=== PATIENT | female | born 1970 | race Caucasian/White ===

== ENCOUNTER 2016-07-01 17:32 | Emergency (ER) | payer OTHER, MEDICARE ==
[~2016-07-01] VITALS: Ht 172.7 cm; Wt 72.0 kg
[~2016-07-01 17:32] MED LIST: CHOL20003 PO; CYAN2500 PO; HYDR-3240 PO; LACT1CAP37 PO; LIDO700A5 TD; MAGN400T7 PO; MECL25TA4 PO; MELA5TAB PO; METH750T87 PO; MULT-516 PO; Magnesium PO; ONDA4TAB13 SL; OXYC10TA6 PO; OXYC5TAB3 PO; POLY17PO5 PO; QUET100T PO; SENN8.6T98 PO; WHEAT GRASS; [UNRECOGNIZED DRUG - OTHER] PO; biocleanse PO
[2016-07-01] MEDS ORDERED: ASPIRIN 81 MG TABLET CHEW PO ONE (18:00)
[2016-07-01] MEDS ORDERED: ASPIRIN 81 MG TABLET CHEW ONE (18:25)
[2016-07-01 18:41] LABS: HEMOGLOBIN 11.5 g/dL (11.7-16.4)
[2016-07-01 18:52] LABS: ASPARTATE AMINO TRANSFERASE 35 U/L (15-37); BLOOD UREA NITROGEN 7 mg/dL (7-18)
[2016-07-01 18:58] LABS: IS PT STATUS REG ER OR PRE ER? YES
[2016-07-01] MEDS ORDERED: ONDANSETRON 2MG/ML, 2ML IVPush ONE ×2 (19:00→19:30)
[2016-07-01] MEDS ORDERED: SODIUM CHLORIDE FLUSH 10ML SYR IVF ONE (19:00)
[2016-07-01 19:30] VITALS: BP 125/81
[2016-07-01] MEDS ORDERED: MORPHINE SULFATE 4 MG/ML, 1ML IVPush PRN (19:30)
[2016-07-01] MEDS ORDERED: ONDANSETRON 2MG/ML, 2ML ONE (19:35)
[2016-07-01] MEDS ORDERED: MORPHINE SULFATE 4 MG/ML, 1ML ONE (19:35)
[2016-07-01 20:54] LABS: PATH.CAST-FLAG NOT PRESENT; SPERM-FLAG NOT PRESENT; SRC-FLAG NOT PRESENT; XTAL-FLAG NOT PRESENT; YLC-FLAG NOT PRESENT
== END 2016-07-01 21:14 | disposition home or self-care (01) ==
LOC: ED 21:08
DX: N30.00 Acute cystitis without hematuria (principal); R07.89 Other chest pain; Z90.49 Acquired absence of other specified parts of digestive tract; Z88.8 Allergy status to other drugs, medicaments and biological substances
CPT/HCPCS: 36415; 71010; 80053; 81001; 83690; 84484; 85025; 85379; 87077; 87086; 87186; 93005; 96374; 96375; 99285; J2405

== ENCOUNTER 2017-01-05 09:07 | Emergency (ER) | payer OTHER, MEDICARE ==
[~2017-01-05] VITALS: Ht 175.3 cm; Wt 68.0 kg
[~2017-01-05 09:07] MED LIST changes: +CHOL2000 PO; -CHOL20003 PO; -MELA5TAB PO; +MELA5TAB19 PO
[2017-01-05] MEDS ORDERED: SODIUM CHLORIDE 0.9% 1,000 ML IV ONE (09:33)
[2017-01-05 09:56] LABS: HEMATOCRIT 35.5 % (34.6-47.8); HEMOGLOBIN 12.1 g/dL (11.7-16.4); WHITE BLOOD COUNT 2.6 x10^3/uL (3.4-10)
[2017-01-05] MEDS ORDERED: SODIUM CHLORIDE FLUSH 10ML SYR IVF ONE (10:00)
[2017-01-05] MEDS ORDERED: FENTANYL PF 100 MCG/2ML IVPush PRN (10:00)
[2017-01-05] MEDS ORDERED: ONDANSETRON 2MG/ML, 2ML IVPush ONE (10:00)
[2017-01-05 10:02] LABS: ASPARTATE AMINO TRANSFERASE 33 U/L (15-37); BLOOD UREA NITROGEN 9 mg/dL (7-18)
[2017-01-05 10:08] LABS: IS PT STATUS REG ER OR PRE ER? YES
[2017-01-05] MEDS ORDERED: ONDANSETRON 2MG/ML, 2ML ONE (10:11)
[2017-01-05] MEDS ORDERED: FENTANYL PF 100 MCG/2ML ONE (10:12)
[2017-01-05 11:19] VITALS: BP 109/69
== END 2017-01-05 11:59 | disposition home or self-care (01) ==
LOC: ED 09:32
DX: R07.89 Other chest pain (principal); R10.84 Generalized abdominal pain; D72.819 Decreased white blood cell count, unspecified; Z87.891 Personal history of nicotine dependence; Z90.49 Acquired absence of other specified parts of digestive tract
CPT/HCPCS: 36415; 74022; 80053; 83690; 83880; 84484; 85025; 93005; 96361; 96374; 96375; 99285; J2405; J3010; J7030

== ENCOUNTER 2017-01-10 22:21 | Emergency (ER) | payer OTHER, MEDICARE ==
[~2017-01-10] VITALS: Ht 175.3 cm; Wt 54.5 kg
[2017-01-10] MEDS ORDERED: LORazepam 2 MG/ML, 1ML ONE (22:52)
[2017-01-10] MEDS ORDERED: ONDANSETRON 2MG/ML, 2ML ONE (22:52)
[2017-01-10] MEDS ORDERED: SODIUM CHLORIDE 0.9% 1,000ML IVBOLUS ONE (23:00)
[2017-01-10] MEDS ORDERED: LORazepam 2 MG/ML, 1ML IVPush ONE (23:00)
[2017-01-10] MEDS ORDERED: ONDANSETRON 2MG/ML, 2ML IVPush ONE (23:00)
[2017-01-10] MEDS ORDERED: QUET50TA PO (23:04)
[2017-01-10] MEDS ORDERED: KETOROLAC 30 MG/1 ML ONE (23:21)
[2017-01-10] MEDS ORDERED: KETOROLAC 30 MG/1 ML IVPush ONE (23:30)
[2017-01-11 00:09] VITALS: BP 106/69
== END 2017-01-11 00:33 | disposition home or self-care (01) ==
LOC: ED 23:59
DX: F12.129 Cannabis abuse with intoxication, unspecified (principal); G89.29 Other chronic pain; R10.9 Unspecified abdominal pain
CPT/HCPCS: 96361; 96374; 96375; 99285; J1885; J2060; J2405; J7030

== ENCOUNTER 2017-02-06 11:26 | Emergency (ER) | payer OTHER, MEDICARE ==
[~2017-02-06] VITALS: Ht 172.7 cm; Wt 57.0 kg
[~2017-02-06 11:26] MED LIST changes: +QUET50TA PO
[2017-02-06] MEDS ORDERED: SODIUM CHLORIDE 0.9% 1,000ML IVBOLUS ONE (12:00)
[2017-02-06 12:13] LABS: HEMATOCRIT 38.1 % (34.6-47.8); HEMOGLOBIN 12.5 g/dL (11.7-16.4); WHITE BLOOD COUNT 2.4 x10^3/uL (3.4-10)
[2017-02-06 12:25] LABS: ASPARTATE AMINO TRANSFERASE 40 U/L (15-37); BLOOD UREA NITROGEN 8 mg/dL (7-18)
[2017-02-06 12:28] LABS: IS PT STATUS REG ER OR PRE ER? YES
[2017-02-06] MEDS ORDERED: MECLIZINE CHEWABLE 25 MG TAB PO ONE (12:30)
[2017-02-06] MEDS ORDERED: morphine SULFATE 10 MG/ML, 1ML ONE (12:41)
[2017-02-06] MEDS ORDERED: ONDANSETRON 2MG/ML, 2ML ONE (12:41)
[2017-02-06] MEDS ORDERED: MECLIZINE CHEWABLE 25 MG TAB ONE (12:41)
[2017-02-06 13:05] LABS: PATH.CAST-FLAG NOT PRESENT; SPERM-FLAG NOT PRESENT; SRC-FLAG NOT PRESENT; XTAL-FLAG NOT PRESENT; YLC-FLAG NOT PRESENT
[2017-02-06] MEDS ORDERED: ONDANSETRON 2MG/ML, 2ML IVPush ONE (13:30)
[2017-02-06] MEDS ORDERED: MORPHINE SULFATE 4 MG/ML, 1ML IVPush ONE (13:30)
[2017-02-06 15:02] VITALS: BP 115/57
== END 2017-02-06 15:04 | disposition home or self-care (01) ==
LOC: ED 13:39
DX: R42 Dizziness and giddiness (principal); Z90.49 Acquired absence of other specified parts of digestive tract
CPT/HCPCS: 36415; 70450; 71010; 80053; 81001; 82010; 83690; 84484; 85025; 87086; 93005; 96361; 96374; 96375; 99285; J2405; J7030

== ENCOUNTER 2017-05-12 13:13 | Emergency (ER) | payer OTHER, MEDICARE ==
[~2017-05-12] VITALS: Ht 172.7 cm; Wt 53.0 kg
[2017-05-12] MEDS ORDERED: DIPHENHYDRAMINE 50 MG/ML, 1ML IVPush ONE (14:00)
[2017-05-12] MEDS ORDERED: SODIUM CHLORIDE 0.9% 1,000ML IVBOLUS ONE (14:00)
[2017-05-12] MEDS ORDERED: MORPHINE SULFATE 4 MG/ML, 1ML IVPush PRN (14:00)
[2017-05-12] MEDS ORDERED: SODIUM CHLORIDE FLUSH 10ML SYR IVF ONE (14:00)
[2017-05-12] MEDS ORDERED: METOCLOPRAMIDE 5 MG/ML, 2ML IVPush ONE (14:00)
[2017-05-12] MEDS ORDERED: METOCLOPRAMIDE 5 MG/ML, 2ML ONE (14:07)
[2017-05-12] MEDS ORDERED: MORPHINE SULFATE 4 MG/ML, 1ML ONE (14:07)
[2017-05-12] MEDS ORDERED: DIPHENHYDRAMINE 50 MG/ML, 1ML ONE (14:07)
[2017-05-12 14:11] LABS: MICROSCOPIC NOT IND
[2017-05-12 14:26] LABS: BASOPHILS # (AUTO) 0.02 x10^3/uL (0-0.1); BASOPHILS % (AUTO) 1 % (0-1); EOSINOPHILS # (AUTO) 0.01 x10^3/uL (0-0.4); EOSINOPHILS % (AUTO) 0 % (1-7); LYMPHOCYTES # (AUTO) 0.89 x10^3/uL (1-3.4); LYMPHOCYTES % (AUTO) 21 % (22-44); MD NO; MEAN CORPUSCULAR HEMOGLOBIN 30.9 pg (27.0-34.8); MEAN CORPUSCULAR HGB CONC 33.8 g/dL (32.4-35.8); MEAN CORPUSCULAR VOLUME 91.4 fL (80-100); MEAN PLATELET VOLUME 9.4 fL (7.4-10.4); MONOCYTES # (AUTO) 0.34 x10^3/uL (0.2-0.8); MONOCYTES % (AUTO) 8 % (2-9); NEUTROPHILS # (AUTO) 3.01 x10^3/uL (1.8-6.8); NEUTROPHILS % (AUTO) 70 % (42-75); PLATELET COUNT 217 x10^3/uL (130-400); RED BLOOD COUNT 4.55 x10^6/uL (3.82-5.3); RED CELL DISTRIBUTION WIDTH 15.1 % (9.6-15.2)
[2017-05-12 14:27] LABS: CULTURE INDICATED? NO
[2017-05-12 14:35] LABS: ALBUMIN 3.5 g/dL (3.4-5.0); ANION GAP 8 mmol/L (5-15); CALCIUM 8.1 mg/dL (8.5-10.1); CHLORIDE 106 mmol/L (98-107)
[2017-05-12 14:41] LABS: ALANINE AMINOTRANSFERASE 44 U/L (12-78); ALKALINE PHOSPHATASE 143 U/L (45-117); BILIRUBIN,TOTAL 0.8 mg/dL (0.2-1.0); CREATININE 0.79 mg/dL (0.55-1.02); TOTAL PROTEIN 6.6 g/dL (6.4-8.2)
[2017-05-12 15:49] VITALS: BP 91/57
== END 2017-05-12 15:52 | disposition home or self-care (01) ==
LOC: ED 15:46
DX: R10.84 Generalized abdominal pain (principal); F11.23 Opioid dependence with withdrawal; Z90.49 Acquired absence of other specified parts of digestive tract; Z88.5 Allergy status to narcotic agent
CPT/HCPCS: 36415; 80053; 81003; 83690; 84703; 85025; 96361; 96374; 96375; 99284; J1200; J2765; J7030

== ENCOUNTER → 2018-08-29 | Outpatient (CLI) | payer OTHER, MEDICARE ==
[~2018-08-29] MED LIST changes: +ALPR1TAB2 PO; +CITA10TA4 PO; +FLUO10CA13 PO; +GABA300C10 PO
[2018-08-29 09:25] LABS: BASOPHILS # (AUTO) 0.02 x10^3/uL (0-0.1); BASOPHILS % (AUTO) 1 % (0-1); EOSINOPHILS # (AUTO) 0.04 x10^3/uL (0-0.4); EOSINOPHILS % (AUTO) 1 % (1-7); LYMPHOCYTES # (AUTO) 0.87 x10^3/uL (1-3.4); LYMPHOCYTES % (AUTO) 26 % (22-44); MD NO; MEAN CORPUSCULAR HEMOGLOBIN 30.6 pg (27.0-34.8); MEAN CORPUSCULAR HGB CONC 32.7 g/dL (32.4-35.8); MEAN CORPUSCULAR VOLUME 93.5 fL (80-100); MEAN PLATELET VOLUME 8.6 fL (7.4-10.4); MONOCYTES # (AUTO) 0.33 x10^3/uL (0.2-0.8); MONOCYTES % (AUTO) 10 % (2-9); NEUTROPHILS # (AUTO) 2.11 x10^3/uL (1.8-6.8); NEUTROPHILS % (AUTO) 63 % (42-75); PLATELET COUNT 225 x10^3/uL (130-400); RED BLOOD COUNT 4.31 x10^6/uL (3.82-5.3)
[2018-08-29 09:29] LABS: ALANINE AMINOTRANSFERASE 50 U/L (12-78); ANION GAP 5 mmol/L (5-15); CALCIUM 8.5 mg/dL (8.5-10.1); CHLORIDE 108 mmol/L (98-107); CREATININE 0.81 mg/dL (0.55-1.02)
[2018-08-29 09:56] LABS: ALKALINE PHOSPHATASE 75 U/L (45-117); BILIRUBIN,TOTAL 0.4 mg/dL (0.2-1.0); TOTAL PROTEIN 7.3 g/dL (6.4-8.2)
== END | disposition home or self-care (01) ==
LOC: LAB 08:53
PROVIDERS: ATTEND Internal Medicine
DX: D51.9 Vitamin B12 deficiency anemia, unspecified (principal); E31.20 Multiple endocrine neoplasia [MEN] syndrome, unspecified; E34.0 Carcinoid syndrome; G89.4 Chronic pain syndrome; K59.03 Drug induced constipation; R10.9 Unspecified abdominal pain; Z88.5 Allergy status to narcotic agent
CPT/HCPCS: 36415; 80053; 82607; 84586; 85025

== ENCOUNTER 2018-09-13 11:29 | Emergency (ER) | payer OTHER, MEDICARE ==
[~2018-09-13] VITALS: Ht 177.8 cm; Wt 77.7 kg
--- NOTE | 2018-09-13 12:25 | NUR ---
PT TO ROOM FROM LOBBY, PT STATES SHE "NEEDS TO GO NOW", PT GIVEN SUPPLIES FOR URINE AND STOOL SAMPLES
[2018-09-13 12:36] LABS: BASOPHILS # (AUTO) 0.02 x10^3/uL (0-0.1); BASOPHILS % (AUTO) 0 % (0-1); EOSINOPHILS # (AUTO) 0.06 x10^3/uL (0-0.4); EOSINOPHILS % (AUTO) 1 % (1-7); LYMPHOCYTES # (AUTO) 1.04 x10^3/uL (1-3.4); LYMPHOCYTES % (AUTO) 21 % (22-44); MD NO; MEAN CORPUSCULAR HEMOGLOBIN 31.3 pg (27.0-34.8); MEAN CORPUSCULAR HGB CONC 33.4 g/dL (32.4-35.8); MEAN CORPUSCULAR VOLUME 93.8 fL (80-100); MEAN PLATELET VOLUME 8.3 fL (7.4-10.4); MONOCYTES # (AUTO) 0.64 x10^3/uL (0.2-0.8); MONOCYTES % (AUTO) 13 % (2-9); NEUTROPHILS # (AUTO) 3.29 x10^3/uL (1.8-6.8); NEUTROPHILS % (AUTO) 65 % (42-75); PLATELET COUNT 299 x10^3/uL (130-400); RED BLOOD COUNT 4.51 x10^6/uL (3.82-5.3); RED CELL DISTRIBUTION WIDTH 13.4 % (9.6-15.2)
[2018-09-13 12:45] LABS: ALBUMIN 4.1 g/dL (3.4-5.0); ANION GAP 5 mmol/L (5-15); CALCIUM 8.4 mg/dL (8.5-10.1); CHLORIDE 105 mmol/L (98-107); CREATININE 0.83 mg/dL (0.55-1.02)
--- NOTE | 2018-09-13 12:53 | NUR ---
pt unable to stool at this time, urine sent to lab
[2018-09-13 13:11] LABS: MICROSCOPIC NOT IND
[2018-09-13 13:15] LABS: CULTURE INDICATED? NO
--- NOTE | 2018-09-13 13:18 | NUR ---
PT STILL UNABLE TO PROVIDE STOOL SAMPLE AT THIS TIME. PT RESTING IN [facility], CALL LIGHT WITHIN REACH
[2018-09-13 13:51] VITALS: BP 114/69
[2018-09-13] MEDS ORDERED: FENTANYL PF 100 MCG/2ML IV ONE (14:00)
--- NOTE | 2018-09-13 14:11 | NUR ---
PT REFUSING PAIN MEDICATION. MD AT BEDSIDE TO GO OVER RESULTS, PT STATES "IF YOU CAN'T TEST FOR CDIFF WHY AM I HERE, I SHOULDNT HAVE COME HERE", PT PRODUCES PAPERWORK FOR LAB TESTS FOR STOOL SAMPLE, PT EDUCATED WE CANNOT TEST FOR CDIFF IF WE DO NOT HAVE STOOL SAMPLE AND SHE CAN USE THE LAB REQS TO DO THIS OUTPATIENT. PT STATES "FINE I WANT TO LEAVE THEN"
== END 2018-09-13 14:27 | disposition home or self-care (01) ==
LOC: ED 14:21
DX: R19.7 Diarrhea, unspecified (principal); R10.30 Lower abdominal pain, unspecified; Z90.49 Acquired absence of other specified parts of digestive tract
CPT/HCPCS: 36415; 80048; 81003; 82040; 85025; 93005; 99284

== ENCOUNTER → 2018-09-14 | Outpatient (CLI) | payer OTHER, MEDICARE | END | disposition home or self-care (01) | LOC: CFH 11:49 | PROVIDERS: ATTEND Specialist | DX: Z12.31 Encounter for screening mammogram for malignant neoplasm of breast (principal) | CPT/HCPCS: 76641; 77063; 77067 ==

== ENCOUNTER 2018-10-03 10:17 | Outpatient (CLI) | payer OTHER, MEDICARE ==
[~2018-10-03] VITALS: Ht 177.8 cm; Wt 77.4 kg
[2018-10-03 10:01] VITALS: BP 132/84
[~2018-10-03 10:17] MED LIST changes: +DULO20CA45 PO
[2018-10-03] MEDS ORDERED: OCTREOTIDE LAR 20 MG IM ONE (10:30)
[2018-10-04] MEDS ORDERED: CIPR500S2 PO (19:17)
[2018-10-04] MEDS ORDERED: DOXE10OR2 PEG (19:17)
[2018-10-04] MEDS ORDERED: DULO30CA43 PO (19:17)
[2018-10-04] MEDS ORDERED: DICL100G25 PO (19:17)
[2018-10-04] MEDS ORDERED: BENZ150C3 PO (19:17)
[2018-10-04] MEDS ORDERED: DULO40CA2 PEG (20:01)
== END 2018-10-03 23:59 | disposition home or self-care (01) ==
LOC: INFUSION 10:17
PROVIDERS: ATTEND Internal Medicine Gastroenterology
DX: D3A.098 Benign carcinoid tumors of other sites (principal); G89.4 Chronic pain syndrome; Z90.49 Acquired absence of other specified parts of digestive tract; Z79.899 Other long term (current) drug therapy
CPT/HCPCS: 96372; J2353

== ENCOUNTER 2018-10-03 10:33 | Emergency (ER) | payer OTHER, MEDICARE ==
[~2018-10-03] VITALS: Ht 177.8 cm; Wt 76.7 kg
[2018-10-03 11:13] LABS: MICROSCOPIC NOT IND
[2018-10-03 11:18] LABS: CULTURE INDICATED? NO
[2018-10-03] MEDS ORDERED: morphine SULFATE 10 MG/ML, 1ML IVPush ONE (11:30)
[2018-10-03] MEDS ORDERED: SODIUM CHLORIDE FLUSH 10ML SYR IVF ONE (11:30)
[2018-10-03] MEDS ORDERED: morphine SULFATE 10 MG/ML, 1ML ONE (11:37)
--- NOTE | 2018-10-03 11:39 | NUR ---
PIV STARTED. PATIENT MEDICATED WITH 7MG MORPHINE.
--- NOTE | 2018-10-03 12:06 | NUR ---
pt returned from XR, laying on gurney awake & more comfortable, "pain comes & goes", responds approp ro staff, NAD, comfort measures provided, call light within reach.
[2018-10-03 12:56] VITALS: BP 124/73
--- NOTE | 2018-10-03 12:58 | NUR ---
pt continues laying on gurney awake & comfortable, "pain comes & goes", responds approp ro staff, NAD, comfort measures provided, call light within reach. awaiting US results
--- NOTE | 2018-10-03 13:08 | NUR ---
Patient given discharge instructions and they have confirmed that they understand the instructions. Patient ambulatory with steady gait but requested WC to DC desk for comfort.
[2018-10-04] MEDS ORDERED: DICL100G25 PO (19:17)
[2018-10-04] MEDS ORDERED: DULO30CA43 PO (19:17)
[2018-10-04] MEDS ORDERED: BENZ150C3 PO (19:17)
[2018-10-04] MEDS ORDERED: DOXE10OR2 PEG (19:17)
[2018-10-04] MEDS ORDERED: CIPR500S2 PO (19:17)
[2018-10-04] MEDS ORDERED: DULO40CA2 PEG (20:01)
== END 2018-10-03 13:27 | disposition home or self-care (01) ==
LOC: ED 12:36
DX: M54.5 Low back pain (principal); Z90.49 Acquired absence of other specified parts of digestive tract; Z90.89 Acquired absence of other organs
CPT/HCPCS: 72110; 76770; 81003; 96374; 99284; J2270

== ENCOUNTER 2018-10-04 14:46 | Inpatient (IN) | payer OTHER, MEDICARE ==
[~2018-10-04] VITALS: Ht 177.8 cm; Wt 78.5 kg
[2018-10-04] MEDS ORDERED: METHOCARBAMOL 750 MG TABLET ONE (15:21)
[2018-10-04] MEDS ORDERED: KETOROLAC 30 MG/1 ML ONE (15:21)
[2018-10-04] MEDS ORDERED: METHOCARBAMOL 750 MG TABLET PO ONE (15:30)
[2018-10-04] MEDS ORDERED: KETOROLAC 30 MG/1 ML IM ONE (15:30)
--- NOTE | 2018-10-04 15:43 | NUR ---
PT REPORTS PAIN 02/03 AND STATES PAIN MEDS HAVE DONE NOTHING. EXPLAINED TO PT THAT IT CAN TAKE UP TO 1 HR FOR PO/IM PAIN MEDS TO KICK IN AND ASKED THAT SHE BE PATIENT. PT WAS NOT HAPPY WITH THAT. Addendum: 10/04/18 at 1544 by BRENNON EDUCATED PATIENT ON NEED FOR CLEAN CATCH URINE SPECIMEN AND UPCOMING ABD CT.
[2018-10-04 15:52] LABS: BASOPHILS # (AUTO) 0.02 x10^3/uL (0-0.1); BASOPHILS % (AUTO) 1 % (0-1); EOSINOPHILS # (AUTO) 0.03 x10^3/uL (0-0.4); EOSINOPHILS % (AUTO) 1 % (1-7); LYMPHOCYTES # (AUTO) 1.07 x10^3/uL (1-3.4); LYMPHOCYTES % (AUTO) 23 % (22-44); MD NO; MEAN CORPUSCULAR HEMOGLOBIN 30.7 pg (27.0-34.8); MEAN CORPUSCULAR HGB CONC 32.7 g/dL (32.4-35.8); MEAN CORPUSCULAR VOLUME 93.9 fL (80-100); MEAN PLATELET VOLUME 7.9 fL (7.4-10.4); MONOCYTES # (AUTO) 0.39 x10^3/uL (0.2-0.8); MONOCYTES % (AUTO) 9 % (2-9); NEUTROPHILS # (AUTO) 3.08 x10^3/uL (1.8-6.8); NEUTROPHILS % (AUTO) 67 % (42-75); PLATELET COUNT 299 x10^3/uL (130-400); RED BLOOD COUNT 4.18 x10^6/uL (3.82-5.3); RED CELL DISTRIBUTION WIDTH 13.9 % (9.6-15.2)
[2018-10-04 16:01] LABS: ALANINE AMINOTRANSFERASE 45 U/L (12-78); ALBUMIN 3.7 g/dL (3.4-5.0); ANION GAP 6 mmol/L (5-15); CALCIUM 8.4 mg/dL (8.5-10.1); CHLORIDE 106 mmol/L (98-107)
[2018-10-04 16:03] LABS: ALKALINE PHOSPHATASE 86 U/L (45-117); BILIRUBIN,TOTAL 0.7 mg/dL (0.2-1.0); CREATININE 0.73 mg/dL (0.55-1.02); TOTAL PROTEIN 7.1 g/dL (6.4-8.2)
[2018-10-04] MEDS: SODIUM CHLORIDE FLUSH 10ML SYR IVF PRN ×2 (17:53→19:48)
[2018-10-04 17:56] LABS: MICROSCOPIC AUTO
[2018-10-04 18:01] LABS: CULTURE INDICATED? YES
--- NOTE | 2018-10-04 18:15 | NUR ---
TASK RN: REPORT GIVEN TO RECIEVING RN. ALL QUESTIONS ANSWERED. AWAITING PT TRANSPORT.
[2018-10-04 19:00] VITALS: BP 110/72
[2018-10-04] MEDS ORDERED: BENZ150C3 PO (19:17)
[2018-10-04] MEDS ORDERED: DULO30CA43 PO (19:17)
[2018-10-04] MEDS ORDERED: DICL100G25 PO (19:17)
[2018-10-04] MEDS ORDERED: DOXE10OR2 PEG (19:17)
[2018-10-04] MEDS ORDERED: CIPR500S2 PO (19:17)
[2018-10-04] MEDS: MORPHINE SULFATE 4 MG/ML, 1ML IVPush PRN (19:47)
[2018-10-04] MEDS: PHENAZOPYRIDINE 200 MG TABLET PO PRN (19:47)
[2018-10-04] MEDS ORDERED: DULO40CA2 PEG (20:01)
[2018-10-04] MEDS: ENOXAPARIN 40 MG/0.4 ML SQ SCH (20:30)
[2018-10-04] MEDS ORDERED: ONDANSETRON ODT 4 MG PO PRN (20:30)
[2018-10-04] MEDS: ACETAMINOPHEN 325 MG TABLET PO PRN (20:31)
[2018-10-04] MEDS: DOCUSATE 100 MG CAPSULE PO SCH (20:31)
[2018-10-04] MEDS ORDERED: MORPHINE SULFATE 4 MG/ML, 1ML IVPush PRN (21:30)
[2018-10-04] MEDS ORDERED: GABAPENTIN 300 MG CAPSULE PO SCH (22:00)
[2018-10-04] MEDS: NITROFURANTOIN (MACROBID) 100 MG CAPSULE PO SCH (22:05)
[2018-10-04] MEDS: BENZONATATE 100 MG CAPSULE PO SCH (22:53)
[2018-10-04] MEDS: ALPRazolam 1MG TAB PO SCH (22:53)
[2018-10-04] MEDS: DICLOFENAC SODIUM 75 MG TABLET.DR PO SCH (22:53)
[2018-10-05 02:02] VITALS: BP 106/69
[2018-10-05] MEDS: MORPHINE SULFATE 4 MG/ML, 1ML IVPush PRN ×5 (03:59→22:42)
[2018-10-05] MEDS: PHENAZOPYRIDINE 200 MG TABLET PO PRN ×3 (03:59→22:41)
[2018-10-05] MEDS: ACETAMINOPHEN 325 MG TABLET PO PRN ×4 (03:59→21:02)
[2018-10-05 04:53] LABS: BASOPHILS # (AUTO) 0.03 x10^3/uL (0-0.1); BASOPHILS % (AUTO) 1 % (0-1); EOSINOPHILS # (AUTO) 0.05 x10^3/uL (0-0.4); EOSINOPHILS % (AUTO) 1 % (1-7); LYMPHOCYTES # (AUTO) 1.44 x10^3/uL (1-3.4); LYMPHOCYTES % (AUTO) 38 % (22-44); MD NO; MEAN CORPUSCULAR HEMOGLOBIN 31.3 pg (27.0-34.8); MEAN CORPUSCULAR HGB CONC 33.2 g/dL (32.4-35.8); MEAN CORPUSCULAR VOLUME 94.2 fL (80-100); MEAN PLATELET VOLUME 8.1 fL (7.4-10.4); MONOCYTES # (AUTO) 0.37 x10^3/uL (0.2-0.8); MONOCYTES % (AUTO) 10 % (2-9); NEUTROPHILS % (AUTO) 50 % (42-75); PLATELET COUNT 277 x10^3/uL (130-400); RED BLOOD COUNT 4.03 x10^6/uL (3.82-5.3)
[2018-10-05 05:03] LABS: ANION GAP 3 mmol/L (5-15); CALCIUM 8.2 mg/dL (8.5-10.1); CHLORIDE 106 mmol/L (98-107); CREATININE 0.73 mg/dL (0.55-1.02)
[2018-10-05] MEDS: DOCUSATE 100 MG CAPSULE PO SCH ×2 (07:22→21:02)
[2018-10-05 07:49] VITALS: BP 95/60
[2018-10-05] MEDS: ALPRazolam 1MG TAB PO SCH ×3 (08:31→21:03)
[2018-10-05] MEDS: DULOXETINE 30 MG CAPSULE.DR PO SCH (08:31)
[2018-10-05] MEDS: NITROFURANTOIN (MACROBID) 100 MG CAPSULE PO SCH (08:31)
[2018-10-05] MEDS: BENZONATATE 100 MG CAPSULE PO SCH ×3 (08:33→21:03)
[2018-10-05] MEDS: GABAPENTIN 300 MG CAPSULE PO SCH (08:33)
[2018-10-05] MEDS: DICLOFENAC SODIUM 75 MG TABLET.DR PO SCH ×2 (08:36→21:02)
[2018-10-05] MEDS ORDERED: CEFTRIAXONE PMX 2GM/50ML 50 ML IV SCH (11:00)
[2018-10-05 13:31] VITALS: BP 111/74
[2018-10-05] MEDS: KETOROLAC 30 MG/1 ML IVPush PRN (19:28)
[2018-10-05] MEDS ORDERED: KETOROLAC 30 MG/1 ML IVPush PRN (19:30)
[2018-10-05 19:48] VITALS: BP 108/75
[2018-10-05] MEDS ORDERED: GABAPENTIN 300 MG CAPSULE PO SCH (21:00)
[2018-10-05] MEDS: ENOXAPARIN 40 MG/0.4 ML SQ SCH (21:03)
[2018-10-06 03:55] VITALS: BP 98/68
[2018-10-06] MEDS: KETOROLAC 30 MG/1 ML IVPush PRN (04:10)
[2018-10-06] MEDS: ALPRazolam 1MG TAB PO SCH (04:26)
[2018-10-06 07:00] VITALS: BP 106/72
[2018-10-06] MEDS: DOCUSATE 100 MG CAPSULE PO SCH (08:48)
[2018-10-06] MEDS: DULOXETINE 30 MG CAPSULE.DR PO SCH (08:48)
[2018-10-06] MEDS: DICLOFENAC SODIUM 75 MG TABLET.DR PO SCH (08:48)
[2018-10-06] MEDS: GABAPENTIN 300 MG CAPSULE PO SCH ×2 (08:48→09:00)
[2018-10-06] MEDS: BENZONATATE 100 MG CAPSULE PO SCH (08:48)
[2018-10-06] MEDS: PHENAZOPYRIDINE 200 MG TABLET PO PRN (09:13)
[2018-10-06] MEDS: ACETAMINOPHEN 325 MG TABLET PO PRN (09:13)
[2018-10-06] MEDS: MORPHINE SULFATE 4 MG/ML, 1ML IVPush PRN (10:47)
[2018-10-06 12:47] VITALS: BP 110/74
== END 2018-10-06 14:50 | disposition home or self-care (01) | DRG 690 ==
LOC: ED 16:07 → EDIP 17:29 → 3NW 19:07 → DCLOUNGE 10-06 14:45
PROVIDERS: ADMIT Internal Medicine; ATTEND Internal Medicine
DX: N39.0 Urinary tract infection, site not specified (principal); G89.29 Other chronic pain; M54.9 Dorsalgia, unspecified; K52.9 Noninfective gastroenteritis and colitis, unspecified; K59.00 Constipation, unspecified; K76.0 Fatty (change of) liver, not elsewhere classified; Z79.899 Other long term (current) drug therapy; Z80.8 Family history of malignant neoplasm of other organs or systems; Z83.3 Family history of diabetes mellitus; Z90.49 Acquired absence of other specified parts of digestive tract; D3A.8 Other benign neuroendocrine tumors
CPT/HCPCS: 36415; 51701; 74176; 80048; 80053; 81001; 85025; 87086; 96372; 99285; G0378; J0696; J1650; J1885; Q0162; J2270; P9612

== ENCOUNTER 2018-11-02 13:47 | Emergency (ER) | payer OTHER, MEDICARE ==
[~2018-11-02] VITALS: Ht 177.8 cm; Wt 79.3 kg
[2018-11-02 13:48] VITALS: BP 112/77
== END 2018-11-02 15:18 | disposition home or self-care (01) ==
LOC: ED 14:46
DX: R10.9 Unspecified abdominal pain (principal); M54.5 Low back pain; G89.29 Other chronic pain; Z90.49 Acquired absence of other specified parts of digestive tract
CPT/HCPCS: 36415; 80048; 81003; 82040; 85025; 99283

== ENCOUNTER 2019-01-20 15:03 | Emergency (ER) | payer OTHER, MEDICARE ==
[~2019-01-20] VITALS: Ht 177.8 cm; Wt 77.8 kg
[~2019-01-20 15:03] MED LIST changes: +BENZ150C3 PO; +CIPR500S2 PO; +DICL100G25 PO; +DOXE10OR2 PEG; +DULO30CA44 PO; +DULO40CA2 PEG; +MELA5TAB14 PO; -MELA5TAB19 PO
--- NOTE | 2019-01-20 15:25 | NUR ---
PT HERE WITH C/O RECURRENT UTI. PT RECEVIED A CALL FROM HOSPITAL STATING SHE HAD AN E.COLI INFECTION IN HER URINE. THEY ALSO TOLD HER THAT SHE HAS A C-DIFF. AT BEDSIDE. PT DRESSED IN GOWN. PA AT BEDSIDE, PLAN OF CARE DISCUSSED AND PT EDUCATE ON NEED FOR URINE SAMPLE.
--- NOTE | 2019-01-20 15:39 | NUR ---
PT AMBULATORY WITH STEADY GAIT TO RESTROOM. UA PROVIDED AND SENT.
--- NOTE | 2019-01-20 15:57 | NUR ---
LAB AT BEDSIDE FOR FIRST SET OF BC. PIV ESTABLISHED BY TECH, SECOND SET OF BC DRAWN.
[2019-01-20] MEDS ORDERED: SODIUM CHLORIDE FLUSH 10ML SYR IVF ONE (16:00)
[2019-01-20] MEDS ORDERED: ONDANSETRON 2MG/ML, 2ML IVPush ONE (16:00)
[2019-01-20] MEDS ORDERED: KETOROLAC 30 MG/1 ML IV ONE (16:00)
[2019-01-20 16:01] LABS: MEAN CORPUSCULAR HEMOGLOBIN 30.8 pg (27.0-34.8); MEAN CORPUSCULAR HGB CONC 32.8 g/dL (32.4-35.8); MEAN CORPUSCULAR VOLUME 93.7 fL (80-100); MEAN PLATELET VOLUME 8.4 fL (7.4-10.4); PLATELET COUNT 251 x10^3/uL (130-400); RED BLOOD COUNT 4.15 x10^6/uL (3.82-5.3); RED CELL DISTRIBUTION WIDTH 13.4 % (9.6-15.2)
[2019-01-20 16:03] LABS: BASOPHILS # (AUTO) 0.02 x10^3/uL (0-0.1); BASOPHILS % (AUTO) 1 % (0-1); EOSINOPHILS # (AUTO) 0.05 x10^3/uL (0-0.4); EOSINOPHILS % (AUTO) 2 % (1-7); LYMPHOCYTES % (AUTO) 31 % (22-44); MD SCAN; MONOCYTES # (AUTO) 0.36 x10^3/uL (0.2-0.8); MONOCYTES % (AUTO) 13 % (2-9); NEUTROPHILS # (AUTO) 1.56 x10^3/uL (1.8-6.8); NEUTROPHILS % (AUTO) 54 % (42-75)
[2019-01-20 16:12] LABS: ALANINE AMINOTRANSFERASE 91 U/L (12-78); ALBUMIN 3.9 g/dL (3.4-5.0); ANION GAP 6 mmol/L (5-15); CALCIUM 8.3 mg/dL (8.5-10.1); CHLORIDE 111 mmol/L (98-107); CREATININE 0.79 mg/dL (0.55-1.02)
[2019-01-20 16:17] LABS: ALKALINE PHOSPHATASE 82 U/L (45-117); BILIRUBIN,TOTAL 0.5 mg/dL (0.2-1.0); TOTAL PROTEIN 7.3 g/dL (6.4-8.2)
[2019-01-20 16:23] LABS: HCG UR SG 1.015 (1.003-1.030); MICROSCOPIC NOT IND
[2019-01-20] MEDS ORDERED: KETOROLAC 30 MG/1 ML ONE (16:24)
[2019-01-20] MEDS ORDERED: ONDANSETRON 2MG/ML, 2ML ONE (16:24)
--- NOTE | 2019-01-20 16:26 | NUR ---
PT MEDICATED PER MAR.
[2019-01-20 16:33] LABS: CULTURE INDICATED? NO
[2019-01-20] MEDS ORDERED: HYDROmorphone 2 MG/ML, 1ML ONE ×2 (17:04→19:27)
[2019-01-20] MEDS: HYDROmorphone 2 MG/ML, 1ML IVPush PRN ×2 (17:07→19:30)
--- NOTE | 2019-01-20 17:08 | NUR ---
PT MEDICATED PER MAY. PT TO CT.
[2019-01-20] MEDS ORDERED: OMNIPAQUE 350 MG/ML, 100ML BOTTLE ONE (17:26)
--- NOTE | 2019-01-20 18:12 | NUR ---
ALL RESULTS BACK AT THIS TIME, CHART UP FOR RECHECK.
[2019-01-20 18:26] VITALS: BP 107/66
--- NOTE | 2019-01-20 18:46 | NUR ---
MD AT BEDSIDE TO DISCUSS TEST RESULTS AND POC.
--- NOTE | 2019-01-20 19:30 | NUR ---
PT MEDICATED PER MD ORDER.
--- NOTE | 2019-01-20 19:37 | NUR ---
Patient/Caregiver given discharge instructions and they have confirmed that they understand the instructions. Patient ambulatory with steady gait.
--- NOTE | 2019-01-20 19:38 | NUR ---
PIV REMOVED, TIP INTACT.
== END 2019-01-20 19:39 | disposition home or self-care (01) ==
LOC: ED 18:43
DX: R10.84 Generalized abdominal pain (principal); R11.2 Nausea with vomiting, unspecified; R19.7 Diarrhea, unspecified; R50.9 Fever, unspecified; G89.29 Other chronic pain; Z90.89 Acquired absence of other organs; Z90.49 Acquired absence of other specified parts of digestive tract
CPT/HCPCS: 36415; 74177; 80053; 81003; 81025; 83605; 84703; 85025; 87040; 87086; 96374; 96375; 96376; 99284; J1170; J1885; J2405; Q9967

== ENCOUNTER 2019-02-25 09:21 | Emergency (ER) | payer OTHER, MEDICARE ==
[~2019-02-25] VITALS: Ht 175.3 cm; Wt 77.4 kg
[~2019-02-25 09:21] MED LIST changes: -MAGN400T7 PO; +MAGN400T9 PO
--- NOTE | 2019-02-25 09:43 | NUR ---
PT AMBULATORY WITH STEADY GAIT TO ROOM. KELSIEN
--- NOTE | 2019-02-25 09:56 | NUR ---
49 Y/O FEMALE PRESENTS TO ED WITH C/O SOB. PER PT "I'VE BEEN IN AND OUT WITH HAVING LIKE A UTI. 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 WHEN I'M ON ABX, IT GOES AWAY. BUT SOON I'M OFF, IT COMES BACK. I WAS ON AMOXICILLIN ABOUT 2 WEEKS AGO. IT VELIZ WHEN I PEE. IT SEEMS THE SYMPTOMS NEVER STOP. NONE OF THE ABX I WAS ON GAVE ME RELIEF. I HAVE BELLY PAIN FROM IT. ALSO, I GET SOB WHEN I WALK ACROSS A ROOM FOR ABOUT A MONTH. I'M ON ELIQUIS TWICE A DAY FOR THE EMBOLISM. I WONDER IF MY PE SPREAD. I'M HAVING CHEST PAIN THAT STARTED PROBABLY MONDAY." PT PLACED ON CONT PULSE OX,NIBP, DIRECTOR LOSS PREVENTION. EDMD BEDSIDE. NO C/O D, TRAUMA, SYNCOPE.
[2019-02-25] MEDS ORDERED: SODIUM CHLORIDE 0.9% 1,000 ML IV ONE (10:05)
--- NOTE | 2019-02-25 10:12 | NUR ---
PT GIVEN WARM BLANKETS. PT TALKING ON CELL PHONE AT THIS TIME. VSS. AGUIRRE
[2019-02-25] MEDS ORDERED: SODIUM CHLORIDE FLUSH 10ML SYR IVF ONE (10:30)
[2019-02-25 10:39] LABS: MEAN CORPUSCULAR HEMOGLOBIN 31.1 pg (27.0-34.8); MEAN CORPUSCULAR HGB CONC 33.4 g/dL (32.4-35.8); MEAN CORPUSCULAR VOLUME 93.1 fL (80-100); MEAN PLATELET VOLUME 8.8 fL (7.4-10.4); PLATELET COUNT 261 x10^3/uL (130-400); RED BLOOD COUNT 4.04 x10^6/uL (3.82-5.3); RED CELL DISTRIBUTION WIDTH 12.7 % (9.6-15.2)
[2019-02-25 10:43] LABS: INTERNATIONAL NORMALIZED RATIO 1.02 (0.93-1.1); PROTHROMBIN TIME 10.7 Seconds (9.6-11.5)
--- NOTE | 2019-02-25 10:48 | NUR ---
PT RESTING ON GURNEY. AGUIRRE. PIV ESTABLISHED. PT TOLERATED WITH NO COMPLICATIONS. NO OTHER NEEDS REQUESTED AT THIS TIME.
[2019-02-25 10:49] LABS: ALANINE AMINOTRANSFERASE 68 U/L (12-78); ALBUMIN 3.8 g/dL (3.4-5.0); ANION GAP 6 mmol/L (5-15); CALCIUM 8.6 mg/dL (8.5-10.1); CHLORIDE 108 mmol/L (98-107)
[2019-02-25 10:54] LABS: ALKALINE PHOSPHATASE 74 U/L (45-117); BILIRUBIN,TOTAL 0.5 mg/dL (0.2-1.0); TOTAL PROTEIN 7.4 g/dL (6.4-8.2); TROPONIN I < 0.015 ng/mL (0.000-0.045)
[2019-02-25 11:10] LABS: BASOPHILS # (AUTO) 0.01 x10^3/uL (0-0.1); BASOPHILS % (AUTO) 1 % (0-1); EOSINOPHILS # (AUTO) 0.05 x10^3/uL (0-0.4); EOSINOPHILS % (AUTO) 2 % (1-7); LYMPHOCYTES # (AUTO) 0.71 x10^3/uL (1-3.4); LYMPHOCYTES % (AUTO) 34 % (22-44); MD SCAN; MONOCYTES # (AUTO) 0.24 x10^3/uL (0.2-0.8); MONOCYTES % (AUTO) 12 % (2-9); NEUTROPHILS # (AUTO) 1.11 x10^3/uL (1.8-6.8); NEUTROPHILS % (AUTO) 52 % (42-75)
[2019-02-25] MEDS ORDERED: HYDROmorphone 1 MG/ML, 1ML VIAL ONE (11:45)
[2019-02-25] MEDS ORDERED: ONDANSETRON 2MG/ML, 2ML ONE (11:45)
--- NOTE | 2019-02-25 11:46 | NUR ---
IN TO ADMINISTERE MEDICATIONS, PT TALKING ON CELL PHONE AT THIS TIME. CARLA
--- NOTE | 2019-02-25 11:50 | NUR ---
PT EDUCATED REGARDING DRIVING AFTER RECEIVING MEDICATIONS THAT WERE ORDERED. PT STATES "I CAN HAVE MY PICK US UP.":
[2019-02-25] MEDS ORDERED: HYDROmorphone 2 MG/ML, 1ML IVPush PRN (12:00)
[2019-02-25] MEDS ORDERED: ONDANSETRON 2MG/ML, 2ML IVPush ONE (12:00)
--- NOTE | 2019-02-25 12:02 | NUR ---
john rn report from nery colon
[2019-02-25 12:24] VITALS: BP 117/63
--- NOTE | 2019-02-25 12:27 | NUR ---
in room to do vital signs. pt requesting this rn to call dr kaplan's office to let her know she is here. this rn advises pt that that is not something we as a nurse generally do but i can pass that information on to the doctor. pt states "my mervat works for the call center and i know you dial [phone] and you get a hold of her." this information given to provider.
[2019-02-25 12:46] LABS: MICROSCOPIC NOT IND
[2019-02-25 12:52] LABS: CULTURE INDICATED? NO
--- NOTE | 2019-02-25 12:56 | NUR ---
BEDSIDE REPORT TO VALENTINA DILL.
--- NOTE | 2019-02-25 12:58 | NUR ---
LATE ENTRY FOR 1245 RECEIVED BEDSIDE REPORT FROM VALENTINA PARK.
--- NOTE | 2019-02-25 13:12 | NUR ---
Receieved bedside report from VALENTINA Francisco. All questions answered. Pt resting on gurney. Bedrails up x 2. Call light within reach. NADN. No needs expressed. Assuming care of pt at this time.
--- NOTE | 2019-02-25 14:36 | NUR ---
Patient given discharge instructions and they have confirmed that they understand the instructions. Patient ambulatory with steady gait.
[2019-02-25] MEDS ORDERED: OMNIPAQUE 350 MG/ML, 100ML BOTTLE ONE (15:21)
== END 2019-02-25 14:36 | disposition home or self-care (01) ==
LOC: ED 12:23
DX: R06.00 Dyspnea, unspecified (principal); F11.20 Opioid dependence, uncomplicated; Z85.9 Personal history of malignant neoplasm, unspecified; Z85.030 Personal history of malignant carcinoid tumor of large intestine
CPT/HCPCS: 36415; 71275; 74177; 80053; 81003; 83690; 83880; 84484; 85025; 85610; 85730; 87040; 87086; 93005; 96374; 96375; 99284; J1170; J2405; J7030; Q9967

== ENCOUNTER 2019-03-26 10:27 | Outpatient (CLI) | payer OTHER, MEDICARE | END 2019-03-26 23:59 | disposition home or self-care (01) | LOC: INFUSION 10:27 | PROVIDERS: ATTEND Internal Medicine Gastroenterology | DX: Z02.9 Encounter for administrative examinations, unspecified (principal) ==

== ENCOUNTER → 2019-05-08 | Outpatient (CLI) | payer OTHER, MEDICARE ==
[~2019-05-08] MED LIST changes: +ANTIBIOTICS FOR UTI; +MECL-101 PO; -MECL25TA4 PO
[2019-05-08 12:41] LABS: BASOPHILS # (AUTO) 0.02 x10^3/uL (0-0.1); BASOPHILS % (AUTO) 1 % (0-1); EOSINOPHILS # (AUTO) 0.04 x10^3/uL (0-0.4); EOSINOPHILS % (AUTO) 1 % (1-7); LYMPHOCYTES # (AUTO) 0.82 x10^3/uL (1-3.4); LYMPHOCYTES % (AUTO) 24 % (22-44); MD NO; MEAN CORPUSCULAR HEMOGLOBIN 29.4 pg (27.0-34.8); MEAN CORPUSCULAR HGB CONC 33.3 g/dL (32.4-35.8); MEAN CORPUSCULAR VOLUME 88.3 fL (80-100); MEAN PLATELET VOLUME 8.7 fL (7.4-10.4); MONOCYTES # (AUTO) 0.44 x10^3/uL (0.2-0.8); MONOCYTES % (AUTO) 13 % (2-9); NEUTROPHILS # (AUTO) 2.07 x10^3/uL (1.8-6.8); NEUTROPHILS % (AUTO) 61 % (42-75); PLATELET COUNT 247 x10^3/uL (130-400); RED BLOOD COUNT 4.25 x10^6/uL (3.82-5.3); RED CELL DISTRIBUTION WIDTH 14.2 % (9.6-15.2)
== END | disposition home or self-care (01) ==
LOC: STAR 10:37
PROVIDERS: ATTEND Internal Medicine Gastroenterology
DX: Z01.818 Encounter for other preprocedural examination (principal)
CPT/HCPCS: 36415; 85025

== ENCOUNTER 2019-05-15 12:19 | Day surgery (SDC) | payer OTHER, MEDICARE ==
[~2019-05-15] VITALS: Ht 172.7 cm; Wt 74.8 kg
[2019-05-15] MEDS ORDERED: LACTATED RINGERS 1,000 ML IV SCH (12:26)
[2019-05-15 12:53] VITALS: BP 96/69
[2019-05-15] MEDS ORDERED: APIX5TAB PO (12:58)
[2019-05-15 13:16] LABS: HCG UR SG 1.025 (1.003-1.030)
[2019-05-15] MEDS ORDERED: SUCCINYLCHOLINE 20 MG/ML, 10ML ONE (14:53)
[2019-05-15] MEDS ORDERED: PROPOFOL 10 MG/ML, 20ML ONE (14:53)
[2019-05-15] MEDS ORDERED: ONDANSETRON 2MG/ML, 2ML ONE (14:53)
[2019-05-15] MEDS ORDERED: FENTANYL PF 100 MCG/2ML ONE ×2 (14:57→15:59)
[2019-05-15] MEDS ORDERED: OXYcodone 5 MG/5 ML ORAL.SOL UDC ONE (15:59)
[2019-05-15] MEDS ORDERED: ACETAMINOPHEN 650 MG/20.3 ML UDC ONE (15:59)
[2019-05-15] MEDS ORDERED: OXYcodone 5 MG/5 ML ORAL.SOL UDC PO PRN (16:00)
[2019-05-15] MEDS ORDERED: ALBUTEROL SULFATE 2.5 MG/3 ML NPPB PRN (16:00)
[2019-05-15] MEDS ORDERED: DIAZEPAM 5 MG/ML, 2ML IVPush PRN (16:00)
[2019-05-15] MEDS ORDERED: FENTANYL PF 100 MCG/2ML IV PRN (16:00)
[2019-05-15] MEDS ORDERED: ACETAMINOPHEN 325 MG TABLET PO PRN (16:00)
[2019-05-15] MEDS ORDERED: HYDROmorphone 2 MG/ML, 1ML IVPush PRN (16:00)
[2019-05-15] MEDS ORDERED: LABETALOL 5MG/ML, 20ML IV PRN (16:00)
[2019-05-15] MEDS ORDERED: PROMETHAZINE 25 MG/ML, 1ML IV PRN (16:00)
[2019-05-15] MEDS ORDERED: MEPERIDINE/PF 25MG/0.5ML IVPush PRN (16:00)
[2019-05-15] MEDS ORDERED: hydrALAzine 20 MG/ML, 1ML IV PRN (16:00)
[2019-05-15] MEDS ORDERED: KETOROLAC 30 MG/1 ML IV PRN (16:00)
== END 2019-05-15 17:45 | disposition home or self-care (01) ==
LOC: OUT 12:19
PROVIDERS: ATTEND Internal Medicine Gastroenterology
DX: E16.8 Other specified disorders of pancreatic internal secretion (principal); Z90.3 Acquired absence of stomach [part of]; Z98.0 Intestinal bypass and anastomosis status
CPT/HCPCS: 43259; 71045; 81025; J0330; J2405; J2704; J3010; J7120

== ENCOUNTER 2019-05-16 12:43 | Emergency (ER) | payer OTHER, MEDICARE ==
[~2019-05-16] VITALS: Ht 172.7 cm; Wt 75.0 kg
[~2019-05-16 12:43] MED LIST changes: +APIX5TAB PO
[2019-05-16 12:48] VITALS: BP 113/75
--- NOTE | 2019-05-16 13:00 | NUR ---
PT BIB [facility] FOR BLOOD IN URINE AND STOOL THAT STARTED TODAY. PT HAD EGD AND EUS DONE YESTERDAY AT THIS FACILITY. TOLD TO RETURN IF THESE SYMPTOMS PRESENTED THEMSELVES. PT STATES SHE HAD BLACK TARRY STOOL THAT WAS FORMED AND HAS PAINFUL URINATION. ALSO C/O LEFT FLANK AND LOWER BACK PAIN 11/03. PT RESP EVEN AND UNLABORED. VS STABLE. PT RESTING ON GURNEY W/ CALL LIGHT IN REACH. DENIES FURTHER NEEDS AT THIS TIME.
--- NOTE | 2019-05-16 13:13 | NUR ---
PT AMBULATED TO THE BR W/ A STEADY GAIT.
--- NOTE | 2019-05-16 13:16 | NUR ---
LAB IN ROOM.
[2019-05-16 13:39] LABS: BASOPHILS # (AUTO) 0.02 x10^3/uL (0-0.1); BASOPHILS % (AUTO) 1 % (0-1); EOSINOPHILS # (AUTO) 0.05 x10^3/uL (0-0.4); EOSINOPHILS % (AUTO) 1 % (1-7); LYMPHOCYTES # (AUTO) 1.05 x10^3/uL (1-3.4); LYMPHOCYTES % (AUTO) 30 % (22-44); MD NO; MEAN CORPUSCULAR HEMOGLOBIN 29.1 pg (27.0-34.8); MEAN CORPUSCULAR HGB CONC 32.9 g/dL (32.4-35.8); MEAN CORPUSCULAR VOLUME 88.4 fL (80-100); MEAN PLATELET VOLUME 8.6 fL (7.4-10.4); MONOCYTES # (AUTO) 0.38 x10^3/uL (0.2-0.8); MONOCYTES % (AUTO) 11 % (2-9); NEUTROPHILS # (AUTO) 2.03 x10^3/uL (1.8-6.8); NEUTROPHILS % (AUTO) 57 % (42-75); PLATELET COUNT 289 x10^3/uL (130-400); RED BLOOD COUNT 4.39 x10^6/uL (3.82-5.3); RED CELL DISTRIBUTION WIDTH 14.1 % (9.6-15.2)
[2019-05-16 13:40] LABS: ALANINE AMINOTRANSFERASE 35 U/L (12-78); ANION GAP 3 mmol/L (5-15); CALCIUM 8.7 mg/dL (8.5-10.1); CHLORIDE 109 mmol/L (98-107); CREATININE 0.82 mg/dL (0.55-1.02)
--- NOTE | 2019-05-16 13:41 | NUR ---
PT REQ PAIN MEDS. NOTIFIED . NO NEW ORDERS AT THIS TIME.
[2019-05-16 13:42] LABS: ALKALINE PHOSPHATASE 83 U/L (45-117); BILIRUBIN,TOTAL 0.8 mg/dL (0.2-1.0); TOTAL PROTEIN 7.9 g/dL (6.4-8.2)
--- NOTE | 2019-05-16 14:00 | NUR ---
PT RESTING ON [employer] W/ CALL LIGHT IN REACH AWAITING TEST RESULTS. REQ STRONG PAIN MEDS. NOTIFIED.
--- NOTE | 2019-05-16 14:10 | NUR ---
PT REQ TO TALK TO DECISION SCIENCE ANALYST REGARDING PAIN. CHARGE DAYNE RN NOTIFIED AND UPDATED ON SITUATION.
[2019-05-16] MEDS ORDERED: ACETAMINOPHEN 325 MG TABLET ONE (14:21)
[2019-05-16 14:24] LABS: MICROSCOPIC NOT IND
--- NOTE | 2019-05-16 14:28 | NUR ---
PT OFFERED TYLENOL FOR PAIN AND REFUSED. STATES SHE TOOK 500MG WIRE STITCHER AND WANTS SOMETHING STRONGER. PT STATES THAT SHE HATES COMING HERE AND THAT SHE IS NOT BEING TREATED WELL HERE. PT ADVISED ME NOT TO USE MY HEALTH INSURANCE HERE STATES "YOU GET PAID SHIT, I KNOW, I USED TO DO YOUR CONTRACTS". STATES THAT SHE WILL PROBABLY BE ADMITTED ON MONDAY WHEN THEY REMOVE PART OF HER LUNG AND SHE "CAN'T MAKE THIS UP".
[2019-05-16] MEDS ORDERED: ACETAMINOPHEN 325 MG TABLET PO ONE (14:30)
[2019-05-16 14:39] LABS: CULTURE INDICATED? NO
--- NOTE | 2019-05-16 14:46 | NUR ---
ALL TESTS RESULTED. PT IS UP FOR RECHECK AT THIS TIME.
--- NOTE | 2019-05-16 15:06 | NUR ---
RESULTS REVIEWED W/ PT AND INTENSIVE CARE SPECIALIST AT BEDSIDE. EXPLAINED TO PT THAT BASED OFF OF OUR TESTS DONE HERE THERE AN NO SIGNS OF INFECTION. LABS RECEIVED FROM LAB [facility] SHOWED NO SIGNS OF "YEAST INFT IN BLOOD". PT STATES THAT "THIS IS A RESIDENTIAL". INTENSIVE CARE SPECIALIST EXPLAINED TO PT THAT SHE IS ABLE TO COME AND GO UNLIKE RESIDENTIAL. DURING REVIEW OF LAB TESTS AND POC PT ANSWERED PHONE CALL STATING "THIS IS SANTIAGO DAI CALLING". PT INFORMED IT IS SAFE TO DC AT THIS TIME. WAITING FOR DC PAPERWORK. Addendum: 05/16/19 at 1546 by CBRUCIAGA RESULTS REVIEWED BY W/ PT AND INTENSIVE CARE SPECIALIST AT BEDSIDE. EXPLAINED TO PT THAT BASED OFF OF OUR TESTS DONE HERE THERE AN NO SIGNS OF INFECTION. LABS RECEIVED FROM [facility] SHOWED NO SIGNS OF "YEAST INFT IN BLOOD". PT STATES THAT "THIS IS A RESIDENTIAL". INTENSIVE CARE SPECIALIST EXPLAINED TO PT THAT SHE IS ABLE TO COME AND GO UNLIKE RESIDENTIAL. DURING REVIEW OF LAB TESTS AND POC PT ANSWERED PHONE CALL STATING "THIS IS SANTIAGO DAI CALLING". PT INFORMED IT IS SAFE TO DC AT THIS TIME. WAITING FOR DC PAPERWORK.
--- NOTE | 2019-05-16 15:16 | NUR ---
TOWN MARSHAL: PT REQUESTED TO SPEAK TO TOWN MARSHAL. TOWN MARSHAL SPOKE WITH PT ALONG WITH AND PRIMARY RN. PT STATED THAT HER SPECIAL NEEDS LIBRARIAN TOLD HER THAT SHE HAD A YEAST INFECTION "AND I'M PRETTY SURE IT WAS IN MY BLOOD AND I WAS TOLD TO COME HERE" AND THAT [facility] HERRERA HER BLOOD AND CONFIRMED "THERE WAS A YEAST INFECTION IN MY BLOOD". SHANTHI MONTGOMERY EDUCATED PT THAT PERHAPS IT WAS A VAGINAL YEAST INFECTION AND TREATMENT IS AVAILABLE OVER THE COUNTER. DOREEN MAYORGA HOLDING LAB RESULTS RECENTLY TAKEN AT [facility] AND THIS RESULT IS NOT PRESENT. DOREEN KENNEDY VERIFIED THAT LAB [facility] HAD NO SUCH RESULT AND NO OTHER TESTS FOR PATIENT. DOREEN KENNEDY SHOWED PATIENT ALL OF HER LAB RESULTS ON THE COMPUTER AND SPOKE IN DEPTH WITH PT REGARDING EACH ONE. PT'S RESPONSE WAS "SO I'M A LIAR. YOU GUYS TREAT MY LIKE AN INMATE. THIS IS [facility]." TOWN MARSHAL EXPLAINED THAT PT HAS 100% FREE CHOICE HERE AND SHE IS NOT GOING TO BE HELD AGAINST HER WILL LIKE THEY WOULD IN [facility]. PT REFUSED OFFER OF PAIN MEDICATION THAT WAS ORDERED BY DOREEN KENNEDY. PT CUT OFF TOWN MARSHAL AND MD TO ANSWER A PHONE CALL AND IGNORED ALL STAFF IN ROOM.
--- NOTE | 2019-05-16 15:28 | NUR ---
PT REPEATEDLY ASKED TO SPEAK W/ WHOEVER IS ABOVE SCRUB TECHNICIAN. REQ FACE TO FACE W/ DIRECTOR OF DEPT. PT REPORTS THAT SHE WAS IN LEVEL 9/10 PAIN THE ENTIRE TIME SHE WAS HERE HOWEVER WHEN OFFERED PAIN MEDS, PT REFUSED STATING SHE NEEDS SOMETHING STRONGER. PT REMOVED VS MONITORING. PTS RESP EVEN AND UNLABORED THROUGHOUT STAY W/ NADN. PT CONVERSED W/ STAFF W/O DIFFICULTY. PT TOOK PHONE CALLS W/O DIFFICULTY. PT REPEATEDLY REPORTED THAT HER WORKED HERE AND THE SHE HOPES "FATEMEH" CAN TURN THIS HOSPITAL AROUND. REPEATEDLY STATED THAT SHE FELT LIKE SHE WAS IN LONGTERM. REMINDED THAT SHE HAD THE FREE WILL TO LEAVE. PT GIVEN DC INSTRUCTIONS. ADVISED TO FOLLOW UP W/ BELT SEWER TO CLARIFY YEAST INFT RESULTS. ALSO INFORMED OF OTC MEDS TO TREAT YEST INFT. PT REFUSED TO SIGN DC PAPERWORK. PT AMBULATED TO THE THE DC DESK W/ A STEADY GAIT AND NADN.
== END 2019-05-16 15:37 | disposition home or self-care (01) ==
LOC: ED 15:00
DX: R10.84 Generalized abdominal pain (principal); K92.1 Melena; R31.9 Hematuria, unspecified; G89.29 Other chronic pain; Z85.118 Personal history of other malignant neoplasm of bronchus and lung
CPT/HCPCS: 36415; 80053; 81003; 83690; 85025; 99283

== ENCOUNTER 2019-10-25 17:23 | Emergency (ER) | payer OTHER, MEDICARE ==
[~2019-10-25] VITALS: Ht 172.7 cm; Wt 71.2 kg
--- NOTE | 2019-10-25 18:35 | NUR ---
PT AMBULATORY TO ROOM 6 W/ C/O BILAT FLANK PAIN WORSE ON R FLANK. STATES HX OF CHRONIC UTI. PT STATES SHE'S HAD 30 OVER THE PAST YEAR. PT ATTEMPTING TO PROVIDE UA SAMPLE AT THIS TIME. WARM BLANKET LEFT ON MEGA FOR PT.
--- NOTE | 2019-10-25 19:03 | NUR ---
REPORT GIVEN TO VALENTINA SERNA.
--- NOTE | 2019-10-25 19:26 | NUR ---
REPORT FROM PADMINI MONTGOMERY. AWAITING ERMD ASSESSMENT.
[2019-10-25] MEDS ORDERED: ONDANSETRON 2MG/ML, 2ML IVPush ONE (20:00)
[2019-10-25] MEDS ORDERED: SODIUM CHLORIDE 0.9% 1,000ML IVBOLUS ONE (20:00)
[2019-10-25] MEDS ORDERED: SODIUM CHLORIDE FLUSH 10ML SYR IVF ONE (20:00)
[2019-10-25 20:26] LABS: ALBUMIN 3.6 g/dL (3.4-5.0); ANION GAP 6 mmol/L (5-15); CALCIUM 8.3 mg/dL (8.5-10.1); CHLORIDE 111 mmol/L (98-107)
[2019-10-25 20:28] LABS: ALANINE AMINOTRANSFERASE 30 U/L (12-78); ALKALINE PHOSPHATASE 93 U/L (45-117); BILIRUBIN,TOTAL 0.4 mg/dL (0.2-1.0); TOTAL PROTEIN 7.1 g/dL (6.4-8.2)
[2019-10-25 20:28] LABS: MICROSCOPIC INDICATED
[2019-10-25] MEDS ORDERED: ONDANSETRON 2MG/ML, 2ML ONE (20:32)
[2019-10-25] MEDS ORDERED: MORPHINE SULFATE 4 MG/ML, 1ML ONE ×2 (20:33→23:12)
[2019-10-25] MEDS: MORPHINE SULFATE 4 MG/ML, 1ML IVPush PRN ×2 (20:34→23:14)
[2019-10-25 20:38] LABS: MD YES; MEAN CORPUSCULAR HEMOGLOBIN 27.3 pg (27.0-34.8); MEAN CORPUSCULAR HGB CONC 32.7 g/dL (32.4-35.8); MEAN PLATELET VOLUME 8.5 fL (7.4-10.4); PLATELET COUNT 284 x10^3/uL (130-400); RED BLOOD COUNT 4.01 x10^6/uL (3.82-5.3); RED CELL DISTRIBUTION WIDTH 17.5 % (9.6-15.2)
--- NOTE | 2019-10-25 20:41 | NUR ---
PT MEDICATED FOR PAIN PER ORDERS. PT IN BED PLAYING ON PHONE. PT ON MONITORS, VSS. AWAITING LABS. CONT TO MONITOR.
[2019-10-25 21:17] LABS: BASOS#(MANUAL) 0.02 x10^3/uL (0-0.1); BASOS% (MANUAL) 1 % (0-1); EOS#(MANUAL) 0.05 x10^3/uL (0.0-0.4); EOS% (MANUAL) 2 % (1-7); LYMPH#(MANUAL) 1.15 x10^3/uL (1-3.4); LYMPHS% (MANUAL) 50 % (22-44); MONOS#(MANUAL) 0.16 x10^3/uL (0.3-2.7); MONOS% (MANUAL) 7 % (2-9); SEG#(MANUAL) 0.92 x10^3/uL (1.8-6.8); SEGS% (MANUAL) 40 % (42-75)
--- NOTE | 2019-10-25 21:17 | NUR ---
PT BACK FROM CT, AWAITING RESULTS. PT STATES DECREASED PAIN, MEDICATIONS EFFECTIVE. CONT TO MONITOR.
[2019-10-25 21:20] LABS: MICROCYTOSIS 1+
[2019-10-25 21:21] LABS: <PLATELET ESTIMATE> ADEQUATE; <PLT MORPHOLOGY> NORMAL PLT MORPH; HYPOCHROMIA 1+; OVALOCYTES 1+
[2019-10-25] MEDS ORDERED: OMNIPAQUE 350 MG/ML, 100ML BOTTLE ONE (21:39)
--- NOTE | 2019-10-25 21:55 | NUR ---
REPORT GIVEN TO TO CATHERINE MONTGOMERY.
[2019-10-25] MEDS ORDERED: KETOROLAC 30 MG/1 ML IVPush ONE (22:00)
[2019-10-25 23:18] VITALS: BP 127/83
[2019-11-06] MEDS ORDERED: QUET50TA5 PO (12:56)
[2019-11-15] MEDS ORDERED: OXYC1TAB18 PO (10:28)
== END 2019-10-25 23:25 | disposition home or self-care (01) ==
LOC: ED 18:58
DX: N30.00 Acute cystitis without hematuria (principal); R10.30 Lower abdominal pain, unspecified; Z85.028 Personal history of other malignant neoplasm of stomach
CPT/HCPCS: 36415; 74177; 80053; 81001; 84703; 85025; 87086; 96374; 96375; 96376; 99285; J2270; J2405; J7030; Q9967

== ENCOUNTER 2019-10-27 10:10 | Emergency (ER) | payer OTHER, MEDICARE ==
[~2019-10-27] VITALS: Ht 175.3 cm; Wt 72.2 kg
[2019-10-27 10:13] VITALS: BP 123/74
[2019-10-27] MEDS ORDERED: KETOROLAC 30 MG/1 ML ONE (11:00)
[2019-10-27] MEDS ORDERED: KETOROLAC 30 MG/1 ML IM ONE (11:00)
[2019-10-27 11:14] LABS: MICROSCOPIC NOT IND
--- NOTE | 2019-10-27 11:27 | NUR ---
PT TO ER FOR MRI OF "RIGHT KIDNEY," SEEN HERE [facility] FOR SAME. PT BECAME ANGRY WHEN TOLD BY ER RHIANNA UNABLE TO COMPLETE MRI IN ER AND PLEASE FOLLOW UP WITH OUT PT MRI PREVIOUSLY SCHEDULED. PT BECAME ANGRY WHEN ONLY TORADOL FOR PAIN OFFERED. PT STATES " I DONT KNOW WHY I COME HERE, THEY NEVER HELP ME." PT DEMANDING OTHER PAIN MEDICATIONS, PT STATING SHE WILL LEAVE IF NOT GIVEN SOMETHING ELSE FOR PAIN. PT WANTING TO SPEAK WITH DECATING MACHINE OPERATOR.
--- NOTE | 2019-10-27 11:30 | NUR ---
PT LEAVING, ER. ATTEMPTS MADE TO EXPLAIN POC TO PT, PT REFUSING. PT STATES "I'M GOING TO [facility], THEY WILL GIVE ME SOMETHING FOR PAIN THERE." PT IS ANCELMO, YELLING AT STAFF, HOSTILE. PT DRESSED SELF AND WALKED OUT OF ER. ERMD AND ER PA-C AWARE OF SITUATION, STATES WILL NOT CHANGE PT'S POC. PT HAS ALL OWN BELONGINGS UPONM LEAVING THE ER. DR. ERAZO OUT TO LOBBY TO DISCUSS POC WITH PT.
--- NOTE | 2019-10-27 11:31 | NUR ---
PIN BALL MACHINE MECHANIC: LIV TRAORE, PT LEFT.
== END 2019-10-27 11:33 | disposition left against medical advice (07) ==
LOC: ED 11:25
DX: G89.29 Other chronic pain (principal); R10.30 Lower abdominal pain, unspecified; Z90.49 Acquired absence of other specified parts of digestive tract; Z85.118 Personal history of other malignant neoplasm of bronchus and lung; Z85.028 Personal history of other malignant neoplasm of stomach
CPT/HCPCS: 81003; 99283

== ENCOUNTER → 2019-11-06 | Outpatient (CLI) | payer OTHER, MEDICARE ==
[~2019-11-06] MED LIST changes: +QUET50TA5 PO
[2019-11-06 13:40] LABS: MICROSCOPIC INDICATED
[2019-11-06 13:59] LABS: INTERNATIONAL NORMALIZED RATIO 1.14 (0.93-1.1); PROTHROMBIN TIME 11.8 Seconds (9.6-11.5)
[2019-11-06 14:02] LABS: ALBUMIN 4.3 g/dL (3.4-5.0); ANION GAP 7 mmol/L (5-15); CALCIUM 8.4 mg/dL (8.5-10.1); CHLORIDE 107 mmol/L (98-107)
[2019-11-06 14:04] LABS: BASOPHILS # (AUTO) 0.02 x10^3/uL (0-0.1); BASOPHILS % (AUTO) 1 % (0-1); EOSINOPHILS # (AUTO) 0.06 x10^3/uL (0-0.4); EOSINOPHILS % (AUTO) 2 % (1-7); LYMPHOCYTES # (AUTO) 1.04 x10^3/uL (1-3.4); LYMPHOCYTES % (AUTO) 34 % (22-44); MD NO; MEAN CORPUSCULAR HEMOGLOBIN 26.2 pg (27.0-34.8); MEAN CORPUSCULAR VOLUME 84.5 fL (80-100); MEAN PLATELET VOLUME 8.9 fL (7.4-10.4); MONOCYTES # (AUTO) 0.35 x10^3/uL (0.2-0.8); MONOCYTES % (AUTO) 12 % (2-9); NEUTROPHILS # (AUTO) 1.61 x10^3/uL (1.8-6.8); NEUTROPHILS % (AUTO) 52 % (42-75); PLATELET COUNT 280 x10^3/uL (130-400); RED BLOOD COUNT 4.34 x10^6/uL (3.82-5.3); RED CELL DISTRIBUTION WIDTH 17.8 % (9.6-15.2)
[2019-11-06 14:05] LABS: ALANINE AMINOTRANSFERASE 38 U/L (12-78); ALKALINE PHOSPHATASE 105 U/L (45-117); BILIRUBIN,TOTAL 0.4 mg/dL (0.2-1.0); CREATININE 0.77 mg/dL (0.55-1.02); TOTAL PROTEIN 7.9 g/dL (6.4-8.2)
== END | disposition home or self-care (01) ==
LOC: STAR 11:58
PROVIDERS: ATTEND Specialist
DX: Z01.818 Encounter for other preprocedural examination (principal); C79.9 Secondary malignant neoplasm of unspecified site; E34.0 Carcinoid syndrome; C16.9 Malignant neoplasm of stomach, unspecified; C74.10 Malignant neoplasm of medulla of unspecified adrenal gland; E16.8 Other specified disorders of pancreatic internal secretion; N80.0 Endometriosis of uterus; D25.9 Leiomyoma of uterus, unspecified; N83.209 Unspecified ovarian cyst, unspecified side; J90 Pleural effusion, not elsewhere classified; I21.09 ST elevation (STEMI) myocardial infarction involving other coronary artery of anterior wall
CPT/HCPCS: 36415; 71046; 80053; 81001; 85025; 85610; 85730; 86304; 87077; 87086; 93005

== ENCOUNTER → 2019-11-06 | Outpatient (CLI) | payer OTHER, MEDICARE | END | disposition home or self-care (01) | LOC: LAB 13:20 | PROVIDERS: ATTEND Internal Medicine | DX: C79.9 Secondary malignant neoplasm of unspecified site (principal); E34.0 Carcinoid syndrome | CPT/HCPCS: 84586 ==

== ENCOUNTER → 2019-11-08 | Outpatient (CLI) | payer OTHER, MEDICARE | END | disposition home or self-care (01) | LOC: STAR 10:21 | PROVIDERS: ATTEND Anesthesiology | DX: Z01.818 Encounter for other preprocedural examination (principal); Z11.59 Encounter for screening for other viral diseases | CPT/HCPCS: 87635 ==

== ENCOUNTER 2019-11-12 06:20 | Inpatient (IN) | payer OTHER, MEDICARE ==
[~2019-11-12] VITALS: Ht 175.3 cm; Wt 72.8 kg
[2019-11-12] MEDS ORDERED: LACTATED RINGERS 1,000 ML IV SCH ×2 (06:50→07:18)
[2019-11-12] MEDS ORDERED: CHLORHEXIDINE 15 ML UDC ONE (06:54)
[2019-11-12] MEDS ORDERED: CHLORHEXIDINE 15 ML UDC MM ONE (07:00)
[2019-11-12] MEDS ORDERED: CEFOTETAN PMX 2GM/50ML 50 ML IV STA (07:19)
[2019-11-12] MEDS ORDERED: CHLORHEXIDINE 15 ML UDC MM STA (07:19)
[2019-11-12 08:10] LABS: HCG UR SG 1.004 (1.003-1.030)
[2019-11-12] MEDS ORDERED: EPINEPHRINE 1 MG/ML, 1ML ONE (08:28)
[2019-11-12] MEDS ORDERED: INDOCYANINE GREEN 25 MG VIAL ONE (08:28)
[2019-11-12] MEDS ORDERED: HEPARIN 1,000 UNITS/ML, 10ML ONE (08:28)
[2019-11-12] MEDS ORDERED: BUPIVACAINE/PF 0.25% ONE (08:28)
[2019-11-12] MEDS ORDERED: FENTANYL PF 250 MCG/5ML ONE (08:47)
[2019-11-12] MEDS ORDERED: MIDAZOLAM 1 MG/ML, 2ML ONE (08:47)
[2019-11-12] MEDS ORDERED: DEXAMETHASONE 4 MG/ML, 1ML ONE (09:46)
[2019-11-12] MEDS ORDERED: CEFAZOLIN 1,000 MG ONE (09:46)
[2019-11-12] MEDS ORDERED: ROCURONIUM 10 MG/ML,10ML ONE (09:46)
[2019-11-12] MEDS ORDERED: SUCCINYLCHOLINE 20 MG/ML, 10ML ONE (09:46)
[2019-11-12] MEDS ORDERED: PROPOFOL 10 MG/ML, 20ML ONE (09:46)
[2019-11-12] MEDS ORDERED: ONDANSETRON 2MG/ML, 2ML ONE (09:46)
[2019-11-12] MEDS ORDERED: LABETALOL 5MG/ML, 20ML IV PRN (11:00)
[2019-11-12] MEDS ORDERED: hydrALAzine 20 MG/ML, 1ML IV PRN (11:00)
[2019-11-12] MEDS ORDERED: ALBUTEROL SULFATE 2.5 MG/3 ML NPPB PRN (11:00)
[2019-11-12] MEDS ORDERED: OXYcodone 5 MG/5 ML ORAL.SOL UDC PO PRN (11:00)
[2019-11-12] MEDS ORDERED: PROMETHAZINE 25 MG/ML, 1ML IV PRN (11:00)
[2019-11-12] MEDS ORDERED: DIAZEPAM 5 MG/ML, 2ML IV PRN ×2 (11:00)
[2019-11-12] MEDS ORDERED: KETOROLAC 30 MG/1 ML IV PRN (11:00)
[2019-11-12] MEDS ORDERED: MEPERIDINE/PF 25MG/0.5ML IVPush PRN (11:00)
[2019-11-12] MEDS ORDERED: ONDANSETRON 2MG/ML, 2ML IVPush PRN (11:00)
[2019-11-12] MEDS ORDERED: METOCLOPRAMIDE 5 MG/ML, 2ML IV PRN (11:00)
[2019-11-12] MEDS ORDERED: OXYcodone 5 MG/5 ML ORAL.SOL UDC ONE (13:13)
[2019-11-12] MEDS ORDERED: FENTANYL PF 100 MCG/2ML ONE (13:13)
[2019-11-12] MEDS ORDERED: HYDROmorphone 1 MG/ML, 1ML INJ ONE (13:13)
[2019-11-12] MEDS: FENTANYL PF 100 MCG/2ML IV PRN ×2 (13:15→13:20)
[2019-11-12] MEDS ORDERED: AMPICILLIN 500 MG INJ IM SCH (13:30)
[2019-11-12] MEDS: HYDROmorphone 1 MG/ML, 1ML INJ IV PRN ×2 (13:37→13:42)
[2019-11-12] MEDS ORDERED: MEPERIDINE/PF 25MG/ML,1ML ONE (13:50)
[2019-11-12 15:05] VITALS: BP 138/86
[2019-11-12] MEDS: D5%-0.45NACL+KCL 20MEQ 1,000 ML IV SCH ×2 (15:31→23:08)
[2019-11-12] MEDS: morphine SULFATE 10 MG/ML, 1ML IVPush PRN ×2 (15:32→16:13)
[2019-11-12] MEDS: ONDANSETRON 2MG/ML, 2ML IVPush PRN (15:33)
[2019-11-12] MEDS: PIPERACILLIN/TAZO/PMX 3.375GM 50 ML IV SCH ×2 (16:20→23:20)
[2019-11-12] MEDS: ENOXAPARIN 40 MG/0.4 ML SQ SCH (17:39)
[2019-11-12] MEDS: HYDROmorphone 2 MG/ML, 1ML IVPush PRN ×2 (18:44→20:59)
[2019-11-12 19:00] VITALS: BP 126/77
[2019-11-12] MEDS: ALPRazolam 1MG TAB PO SCH (20:00)
[2019-11-12] MEDS: QUETIAPINE 25MG TABLET PO SCH (20:00)
[2019-11-12] MEDS: FAMOTIDINE 20 MG/2 ML IVPush SCH (20:58)
[2019-11-12] MEDS ORDERED: FAMOTIDINE 20 MG/2 ML IVPush SCH (21:00)
[2019-11-13] MEDS: D5%-0.45NACL+KCL 20MEQ 1,000 ML IV SCH ×3 (01:20→22:46)
[2019-11-13] MEDS: HYDROmorphone 2 MG/ML, 1ML IVPush PRN ×9 (01:34→21:09)
[2019-11-13] MEDS: ONDANSETRON 2MG/ML, 2ML IVPush PRN ×4 (01:39→20:04)
[2019-11-13 01:48] VITALS: BP 98/61
[2019-11-13] MEDS: PIPERACILLIN/TAZO/PMX 3.375GM 50 ML IV SCH ×4 (04:57→19:58)
[2019-11-13 06:11] LABS: ANION GAP 5 mmol/L (5-15); CALCIUM 7.6 mg/dL (8.5-10.1); CHLORIDE 105 mmol/L (98-107)
[2019-11-13 06:13] LABS: CREATININE 0.82 mg/dL (0.55-1.02)
[2019-11-13 06:14] LABS: BASOPHILS # (AUTO) 0.01 x10^3/uL (0-0.1); BASOPHILS % (AUTO) 0 % (0-1); EOSINOPHILS % (AUTO) 0 % (1-7); LYMPHOCYTES % (AUTO) 6 % (22-44); MD NO; MEAN CORPUSCULAR HEMOGLOBIN 26.7 pg (27.0-34.8); MEAN CORPUSCULAR HGB CONC 31.3 g/dL (32.4-35.8); MEAN CORPUSCULAR VOLUME 85.3 fL (80-100); MONOCYTES # (AUTO) 0.97 x10^3/uL (0.2-0.8); MONOCYTES % (AUTO) 10 % (2-9); NEUTROPHILS # (AUTO) 8.16 x10^3/uL (1.8-6.8); NEUTROPHILS % (AUTO) 84 % (42-75); PLATELET COUNT 215 x10^3/uL (130-400); RED CELL DISTRIBUTION WIDTH 17.1 % (9.6-15.2)
[2019-11-13 07:45] VITALS: BP 106/70
[2019-11-13] MEDS: FAMOTIDINE 20 MG/2 ML IVPush SCH ×2 (08:17→21:14)
[2019-11-13] MEDS: ALPRazolam 1MG TAB PO SCH ×3 (09:00→21:16)
[2019-11-13] MEDS ORDERED: HYDROmorphone 2 MG/ML, 1ML ONE (11:17)
[2019-11-13 15:13] VITALS: BP 97/64
[2019-11-13] MEDS: ENOXAPARIN 40 MG/0.4 ML SQ SCH (17:05)
[2019-11-13 19:41] VITALS: BP 100/66
[2019-11-13] MEDS: QUETIAPINE 25MG TABLET PO SCH (21:16)
[2019-11-14] VITALS (7 sets, daily range): BP systolic 94–108; BP diastolic 58–71
[2019-11-14] MEDS: HYDROmorphone 2 MG/ML, 1ML IVPush PRN ×5 (01:12→16:31)
[2019-11-14] MEDS: PIPERACILLIN/TAZO/PMX 3.375GM 50 ML IV SCH ×4 (02:20→20:14)
[2019-11-14 04:57] LABS: BASOPHILS # (AUTO) 0.01 x10^3/uL (0-0.1); BASOPHILS % (AUTO) 0 % (0-1); EOSINOPHILS # (AUTO) 0.14 x10^3/uL (0-0.4); EOSINOPHILS % (AUTO) 2 % (1-7); LYMPHOCYTES # (AUTO) 0.72 x10^3/uL (1-3.4); LYMPHOCYTES % (AUTO) 12 % (22-44); MD NO; MEAN CORPUSCULAR HEMOGLOBIN 27.3 pg (27.0-34.8); MEAN CORPUSCULAR VOLUME 85.3 fL (80-100); MEAN PLATELET VOLUME 9.5 fL (7.4-10.4); MONOCYTES # (AUTO) 0.64 x10^3/uL (0.2-0.8); MONOCYTES % (AUTO) 11 % (2-9); NEUTROPHILS # (AUTO) 4.39 x10^3/uL (1.8-6.8); NEUTROPHILS % (AUTO) 75 % (42-75); PLATELET COUNT 180 x10^3/uL (130-400); RED CELL DISTRIBUTION WIDTH 17.3 % (9.6-15.2)
[2019-11-14] MEDS: D5%-0.45NACL+KCL 20MEQ 1,000 ML IV SCH ×3 (06:46→21:28)
[2019-11-14] MEDS: FAMOTIDINE 20 MG/2 ML IVPush SCH ×2 (08:52→20:14)
[2019-11-14] MEDS: ALPRazolam 1MG TAB PO SCH ×3 (08:53→20:15)
[2019-11-14] MEDS: OXYcodone/APAP 10/325MG TABLET PO PRN ×3 (08:57→21:22)
[2019-11-14] MEDS: ENOXAPARIN 40 MG/0.4 ML SQ SCH (14:28)
[2019-11-14] MEDS: ONDANSETRON 2MG/ML, 2ML IVPush PRN (18:30)
[2019-11-14] MEDS: APIXABAN 2.5 MG TABLET PO SCH (20:14)
[2019-11-14] MEDS ORDERED: QUETIAPINE 25MG TABLET PO SCH (21:00)
[2019-11-15] MEDS: HYDROmorphone 2 MG/ML, 1ML IVPush PRN (00:23)
[2019-11-15 01:01] VITALS: BP 131/83
[2019-11-15] MEDS: PIPERACILLIN/TAZO/PMX 3.375GM 50 ML IV SCH ×3 (02:18→14:47)
[2019-11-15 07:01] VITALS: BP 106/72
[2019-11-15] MEDS: OXYcodone/APAP 10/325MG TABLET PO PRN (07:10)
[2019-11-15] MEDS: D5%-0.45NACL+KCL 20MEQ 1,000 ML IV SCH (07:50)
[2019-11-15] MEDS: FAMOTIDINE 20 MG/2 ML IVPush SCH (08:41)
[2019-11-15] MEDS: ALPRazolam 1MG TAB PO SCH ×2 (08:41→10:00)
[2019-11-15] MEDS: APIXABAN 2.5 MG TABLET PO SCH (08:41)
[2019-11-15] MEDS ORDERED: OXYcodone/APAP 10/325MG TABLET PO PRN (09:00)
[2019-11-15] MEDS ORDERED: AMPI500V3 PO (10:28)
[2019-11-15] MEDS ORDERED: TRAM50TA2 PO (10:28)
[2019-11-15] MEDS ORDERED: APIX2.5T PO (10:28)
[2019-11-15] MEDS ORDERED: OXYC-432 PO (10:28)
[2019-11-15 12:51] VITALS: BP 105/68
[2019-11-15 14:39] LABS: MICROSCOPIC NOT IND
== END 2019-11-15 16:40 | disposition home or self-care (01) | DRG 743 ==
LOC: OUT 06:20 → 4NW 13:09
PROVIDERS: ADMIT Specialist; ATTEND Specialist
PROC: 0DNW4ZZ Release Peritoneum, Percutaneous Endoscopic Approach (ICD-10-PCS; 2019-11-12)
PROC: 0UT7FZZ Resection of Bilateral Fallopian Tubes, Via Natural or Artificial Opening With Percutaneous Endoscopic Assistance (ICD-10-PCS; 2019-11-12)
PROC: 8E0W4CZ Robotic Assisted Procedure of Trunk Region, Percutaneous Endoscopic Approach (ICD-10-PCS; 2019-11-12)
PROC: 0UT9FZZ Resection of Uterus, Via Natural or Artificial Opening With Percutaneous Endoscopic Assistance (ICD-10-PCS; principal; 2019-11-12 09:00)
DX: N83.202 Unspecified ovarian cyst, left side (principal); K66.0 Peritoneal adhesions (postprocedural) (postinfection); Z98.84 Bariatric surgery status; D64.9 Anemia, unspecified; Z86.711 Personal history of pulmonary embolism; N83.201 Unspecified ovarian cyst, right side; Z90.710 Acquired absence of both cervix and uterus
CPT/HCPCS: 36415; 74018; J3490; 80048; 81003; 81025; 85025; 86850; 86900; 86923; 87086; 88307; C1729; G0378; J0171; J0690; J1100; J1170; J1644; J1650; J2175; J2250; J2405; J2543; J2704; J3010; J0330; J2270; J3480; J7120

== ENCOUNTER 2019-12-12 18:07 | Emergency (ER) | payer OTHER, MEDICARE ==
[~2019-12-12] VITALS: Ht 175.3 cm; Wt 68.0 kg
[~2019-12-12 18:07] MED LIST changes: +AMPI500V3 PO; +APIX2.5T PO; +OXYC1TAB18 PO; +TRAM50TA2 PO
--- NOTE | 2019-12-12 18:34 | NUR ---
PT HAS CO OF ABDOMINAL PAIN FROM STRAING. REFCENT HYSTERECOMTY AND BOWEL OBSTRUCTION. WAS RAKING LEAVES AND FELT A TEAR IN ABDOMEN "LIKE SOMETHING POPPED" PT STATES PAIN IS 12/10. DENIES CP OR SOB
--- NOTE | 2019-12-12 18:50 | NUR ---
report to dean
[2019-12-12] MEDS ORDERED: METOCLOPRAMIDE 5 MG/ML, 2ML ONE (19:16)
[2019-12-12] MEDS ORDERED: MORPHINE SULFATE 4 MG/ML, 1ML ONE (19:16)
[2019-12-12] MEDS ORDERED: MORPHINE SULFATE 4 MG/ML, 1ML IVPush PRN (19:30)
[2019-12-12] MEDS ORDERED: METOCLOPRAMIDE 5 MG/ML, 2ML IVPush ONE (19:30)
[2019-12-12 20:40] LABS: ALBUMIN 3.7 g/dL (3.4-5.0); ANION GAP 7 mmol/L (5-15); CALCIUM 8.6 mg/dL (8.5-10.1); CHLORIDE 109 mmol/L (98-107); CREATININE 0.78 mg/dL (0.55-1.02)
[2019-12-12 20:45] LABS: BASOPHILS # (AUTO) 0.04 x10^3/uL (0-0.1); BASOPHILS % (AUTO) 1 % (0-1); EOSINOPHILS # (AUTO) 0.12 x10^3/uL (0-0.4); EOSINOPHILS % (AUTO) 3 % (1-7); LYMPHOCYTES # (AUTO) 1.19 x10^3/uL (1-3.4); LYMPHOCYTES % (AUTO) 34 % (22-44); MD NO; MEAN CORPUSCULAR HGB CONC 31.6 g/dL (32.4-35.8); MEAN CORPUSCULAR VOLUME 82.5 fL (80-100); MEAN PLATELET VOLUME 9.6 fL (7.4-10.4); MONOCYTES # (AUTO) 0.35 x10^3/uL (0.2-0.8); MONOCYTES % (AUTO) 10 % (2-9); NEUTROPHILS # (AUTO) 1.76 x10^3/uL (1.8-6.8); NEUTROPHILS % (AUTO) 51 % (42-75); PLATELET COUNT 291 x10^3/uL (130-400); RED BLOOD COUNT 3.95 x10^6/uL (3.82-5.3); RED CELL DISTRIBUTION WIDTH 16.8 % (9.6-15.2)
[2019-12-12 20:51] LABS: ALANINE AMINOTRANSFERASE 28 U/L (12-78); ALKALINE PHOSPHATASE 110 U/L (45-117); BILIRUBIN,TOTAL 0.3 mg/dL (0.2-1.0); TOTAL PROTEIN 7.6 g/dL (6.4-8.2)
--- NOTE | 2019-12-12 21:04 | NUR ---
Pt resting comfortably. No s/sx acute distress. Visible chest rise/fall
[2019-12-12 21:56] VITALS: BP 100/57
== END 2019-12-12 22:11 | disposition home or self-care (01) ==
LOC: ED 19:39
DX: G89.29 Other chronic pain (principal); R10.84 Generalized abdominal pain; R11.2 Nausea with vomiting, unspecified; Z85.028 Personal history of other malignant neoplasm of stomach; Z90.89 Acquired absence of other organs; Z90.49 Acquired absence of other specified parts of digestive tract
CPT/HCPCS: 36415; 74022; 80053; 83690; 85025; 96374; 96375; 99284; J2270; J2765

== ENCOUNTER 2020-02-14 16:11 | Emergency (ER) | payer OTHER, MEDICARE ==
[~2020-02-14] VITALS: Ht 175.3 cm; Wt 72.6 kg
[2020-02-14 16:31] VITALS: BP 131/62
--- NOTE | 2020-02-14 16:46 | NUR ---
STAFFING CLERK NOTE: PT LEFT WITHOUT BEING SEEN, FROM LOBBY.
== END 2020-02-14 18:31 | disposition left against medical advice (07) ==
LOC: ED 17:10
DX: R50.9 Fever, unspecified (principal); R07.81 Pleurodynia; Z53.21 Procedure and treatment not carried out due to patient leaving prior to being seen by health care provider

== ENCOUNTER → 2020-02-25 | Emergency (ER) | payer OTHER, MEDICARE ==
[~2020-02-25] VITALS: Ht 175.3 cm; Wt 72.6 kg
[2020-02-25 15:31] VITALS: BP 117/80
--- NOTE | 2020-02-25 16:00 | NUR ---
PT FEELS FAINT, CANT CHG FOR CHEST XRAY
--- NOTE | 2020-02-25 17:15 | NUR ---
NO ANSWER IN LOBBY.
--- NOTE | 2020-02-25 18:15 | NUR ---
NO ANSWER IN LOBBY
== END ==
LOC: ED 15:23
DX: R07.89 Other chest pain (principal); R00.0 Tachycardia, unspecified; F41.9 Anxiety disorder, unspecified
CPT/HCPCS: 93005; 99283

== ENCOUNTER 2020-02-26 06:05 | Emergency (ER) | payer OTHER, MEDICARE ==
[~2020-02-26] VITALS: Ht 175.3 cm; Wt 72.8 kg
--- NOTE | 2020-02-26 06:43 | NUR ---
CC OF CP AND RIB SINCE FRIDAY 11/03 WITH NAUSEA AND SOB. IS ALSO BEING SEEN FOR COVID SYMPTOMS. PT PREVIOUSLY SEEN HERE SOR SIMILAR SYMPTOMS AND STATES SHE CAME LAST NIGHT BUT LOBBY WAS "PACKED" SO SHE LEFT AND WAITED TO COMEBACK.
--- NOTE | 2020-02-26 06:55 | NUR ---
report given to nancy colon
[2020-02-26] MEDS ORDERED: SODIUM CHLORIDE FLUSH 10ML SYR IVF ONE (07:00)
[2020-02-26] MEDS ORDERED: ONDANSETRON 2MG/ML, 2ML IVPush ONE (07:00)
[2020-02-26] MEDS ORDERED: MORPHINE SULFATE 4 MG/ML, 1ML IVPush ONE (07:00)
[2020-02-26] MEDS ORDERED: ONDANSETRON 2MG/ML, 2ML ONE (07:34)
[2020-02-26] MEDS ORDERED: MORPHINE SULFATE 4 MG/ML, 1ML ONE (07:35)
--- NOTE | 2020-02-26 07:47 | NUR ---
PT MEDICATED PER MAR
[2020-02-26 07:49] LABS: BASOPHILS % (AUTO) 1 % (0-1); EOSINOPHILS % (AUTO) 2 % (1-7); LYMPHOCYTES % (AUTO) 34 % (22-44); MEAN CORPUSCULAR HEMOGLOBIN 26.1 pg (27.0-34.8); MEAN CORPUSCULAR HGB CONC 33.3 g/dL (32.4-35.8); MEAN PLATELET VOLUME 8.1 fL (7.4-10.4); MONOCYTES % (AUTO) 12 % (2-9); NEUTROPHILS % (AUTO) 52 % (42-75); PLATELET COUNT 218 x10^3/uL (130-400); RED BLOOD COUNT 3.71 x10^6/uL (3.82-5.3); RED CELL DISTRIBUTION WIDTH 17.6 % (9.6-15.2)
[2020-02-26 07:54] LABS: ANION GAP 7 mmol/L (5-15); CHLORIDE 112 mmol/L (98-107)
[2020-02-26 08:02] LABS: ALANINE AMINOTRANSFERASE 33 U/L (12-78); ALKALINE PHOSPHATASE 98 U/L (45-117); BILIRUBIN,TOTAL 0.5 mg/dL (0.2-1.0); CALCIUM 8.6 mg/dL (8.5-10.1); CREATININE 0.84 mg/dL (0.55-1.02); TOTAL PROTEIN 7.3 g/dL (6.4-8.2); TROPONIN I < 0.015 ng/mL (0.000-0.045)
[2020-02-26 08:57] LABS: MD SCAN
--- NOTE | 2020-02-26 09:30 | NUR ---
PT REQUESTING MD TO ORDER CT. ADVISED EUGENIE BENJAMIN OF REQUEST. PT ALSO ASKED TO SPEAK TO SOMEONE IN CHARGE BECAUSE SHE WAS "NOT GETTING THE CARE I NEED". PT ALSO REQUESTED INFO ABOUT WHO WAS IN ED AND WAS ADVISED INFORMATION COULD NOT BE SHARED BUT RN WOULD PASS MESSAGE ALONG. HEALTHCARE INTERPRETER SHERRY WAS ADVISED OF REQUEST TO SPEAK TO SOMEONE IN CHARGE. RN ALSO SPOKE TO ED MUCKER COFFERDAM MELLISA ABOUT SITUATION.
--- NOTE | 2020-02-26 09:30 | NUR ---
PT STATING PAIN IS STILL THE SAME AFTER INSULATION HELPER
--- NOTE | 2020-02-26 09:45 | NUR ---
WENT TO PT ROOM TO DC IV AND PT STATED "I NEED YOU TO WAIT, I'M ON THE PHONE WITH FATEMEH". VALENTINA HOLLAND WAS ALSO PRESENT TRYING TO GET THE CAR KEYS THAT THE PT WAS REQUESTING AND WAS ALSO TOLD THE SAME THING.
[2020-02-26 10:17] VITALS: BP 111/71
--- NOTE | 2020-02-26 10:30 | NUR ---
PT REC'VD DISCHARGE INSTRUCTIONS AND EDUCATION. PT STATED "THIS DOESN'T MATTER. SAVAGE BRENNAN IS A JOKE". WHEN ASKED IF SHE HAD ANY QUESTIONS ABOUT THE DISCHARGE PT STATED SHE HAD NO QUESTIONS ABOUT THE DISCHARGE. PT WAS ESCORTED BY SECURITY AND RN TO THE DC DOOR, STEADY GAIT.
== END 2020-02-26 11:27 | disposition home or self-care (01) ==
LOC: ED 06:20
DX: J06.9 Acute upper respiratory infection, unspecified (principal); Z20.828 Contact with and (suspected) exposure to other viral communicable diseases; R07.89 Other chest pain; J12.9 Viral pneumonia, unspecified; R05 Cough; F41.9 Anxiety disorder, unspecified; R00.0 Tachycardia, unspecified; R07.2 Precordial pain; Z86.39 Personal history of other endocrine, nutritional and metabolic disease
CPT/HCPCS: 36415; 71045; 74018; 80053; 84484; 85025; 85379; 87635; 93005; 96374; 96375; 99285; J2270; J2405

== ENCOUNTER 2020-03-04 16:22 | Emergency (ER) | payer OTHER, MEDICARE ==
[~2020-03-04] VITALS: Ht 175.3 cm; Wt 72.0 kg
[2020-03-04 16:52] VITALS: BP 116/76
[2020-03-04] MEDS ORDERED: DEXAMETHASONE 4 MG TABLET ONE (17:01)
[2020-03-04] MEDS ORDERED: ACETAMINOPHEN 325 MG TABLET ONE ×2 (17:02→18:18)
[2020-03-04 17:27] LABS: BASOPHILS % (AUTO) 2 % (0-1); EOSINOPHILS % (AUTO) 1 % (1-7); LYMPHOCYTES % (AUTO) 27 % (22-44); MEAN CORPUSCULAR HEMOGLOBIN 24.9 pg (27.0-34.8); MEAN CORPUSCULAR HGB CONC 32.2 g/dL (32.4-35.8); MEAN PLATELET VOLUME 8.4 fL (7.4-10.4); MONOCYTES % (AUTO) 22 % (2-9); NEUTROPHILS % (AUTO) 49 % (42-75); PLATELET COUNT 230 x10^3/uL (130-400); RED BLOOD COUNT 4.12 x10^6/uL (3.82-5.3); RED CELL DISTRIBUTION WIDTH 18.3 % (9.6-15.2)
[2020-03-04] MEDS ORDERED: ACETAMINOPHEN 325 MG TABLET PO ONE (17:30)
[2020-03-04 17:33] LABS: MD NO
[2020-03-04 17:39] LABS: ALBUMIN 4.3 g/dL (3.4-5.0); ANION GAP 8 mmol/L (5-15); CALCIUM 8.6 mg/dL (8.5-10.1); CHLORIDE 109 mmol/L (98-107); CREATININE 0.93 mg/dL (0.55-1.02)
--- NOTE | 2020-03-04 18:38 | NUR ---
PT REC'VD DISCHARGE INSTRUCTIONS AND EDUCATION. PT AMBULATED TO DC AREA, STEADY GAIT.
== END 2020-03-04 18:40 | disposition home or self-care (01) ==
LOC: ED 16:53
DX: U07.1 COVID-19 (principal); B34.9 Viral infection, unspecified; J02.9 Acute pharyngitis, unspecified; R51.9 Headache, unspecified; R05 Cough; R07.89 Other chest pain; R50.9 Fever, unspecified; Z90.89 Acquired absence of other organs; Z90.49 Acquired absence of other specified parts of digestive tract; Z87.891 Personal history of nicotine dependence; Z85.118 Personal history of other malignant neoplasm of bronchus and lung
CPT/HCPCS: 71045; 80048; 82040; 85025; 87635; 93005; 99285

== ENCOUNTER 2020-03-06 13:16 | Emergency (ER) | payer OTHER, MEDICARE ==
[~2020-03-06] VITALS: Ht 175.3 cm; Wt 68.0 kg
--- NOTE | 2020-03-06 14:50 | NUR ---
Pt here for multiple comlaints:CP, SOB, abdominal pain, N/V/D. States that she is Covid+. Pt resting, in NAD. VS updated.
--- NOTE | 2020-03-06 15:16 | NUR ---
Pt upset states "I should be admitted, I have broken ribs and Covid".
[2020-03-06 15:33] LABS: MEAN CORPUSCULAR HGB CONC 32.3 g/dL (32.4-35.8); MEAN PLATELET VOLUME 8.4 fL (7.4-10.4); PLATELET COUNT 202 x10^3/uL (130-400); RED BLOOD COUNT 3.85 x10^6/uL (3.82-5.3); RED CELL DISTRIBUTION WIDTH 18.8 % (9.6-15.2)
[2020-03-06 15:41] LABS: ALBUMIN 3.9 g/dL (3.4-5.0); ANION GAP 6 mmol/L (5-15); CHLORIDE 117 mmol/L (98-107)
[2020-03-06 15:49] LABS: MD YES
[2020-03-06 16:09] LABS: BASOS#(MANUAL) 0.03 x10^3/uL (0-0.1); BASOS% (MANUAL) 2 % (0-1); LYMPH#(MANUAL) 0.57 x10^3/uL (1-3.4); LYMPHS% (MANUAL) 38 % (22-44); MONOS#(MANUAL) 0.39 x10^3/uL (0.3-2.7); MONOS% (MANUAL) 26 % (2-9); SEG#(MANUAL) 0.51 x10^3/uL (1.8-6.8); SEGS% (MANUAL) 34 % (42-75)
[2020-03-06 16:12] LABS: ANISOCYTOSIS 1+
[2020-03-06 16:13] LABS: <PLATELET ESTIMATE> ADEQUATE; <PLT MORPHOLOGY> NORMAL PLT MORPH; HYPOCHROMIA 1+; MICROCYTOSIS 1+
--- NOTE | 2020-03-06 18:11 | NUR ---
Pt very upset about being dc'd. Pt states that she "going home to ". Assured pt that ERP was making the right and informed decision. Pt states "youre the worst hospital in [place]". Continued to stall DC, demanding sleep aid prescription, and continuing to call her PCP on the phone. Pt's VS WNL, provided with taxi vouv=parish.
[2020-03-06 18:14] VITALS: BP 120/88
== END 2020-03-06 18:16 ==
LOC: ED 13:42
DX: U07.1 COVID-19 (principal); J06.9 Acute upper respiratory infection, unspecified; D72.819 Decreased white blood cell count, unspecified; Z90.49 Acquired absence of other specified parts of digestive tract
CPT/HCPCS: 36415; 71045; 80048; 82040; 85025; 99284

== ENCOUNTER 2020-04-20 18:23 | Inpatient (IN) | payer OTHER, MEDICARE ==
[~2020-04-20] VITALS: Ht 175.3 cm; Wt 74.1 kg
[~2020-04-20 18:23] MED LIST changes: +HYDR-1067 PO; -HYDR-3240 PO; -OXYC5TAB3 PO; +OXYC5TAB98 PO
[2020-04-20 18:40] VITALS: BP 131/81
[2020-04-20] MEDS ORDERED: OXYcodone 5 MG/5 ML ORAL.SOL UDC PO PRN (19:30)
[2020-04-20 19:40] VITALS: BP 124/78
[2020-04-20] MEDS: morphine SULFATE 10 MG/ML, 1ML IVPush PRN (20:24)
[2020-04-20] MEDS ORDERED: ACETAMINOPHEN 325 MG TABLET PO PRN (21:00)
[2020-04-20] MEDS ORDERED: ENALAPRILAT 1.25 MG/ML, 2ML IVPush PRN (21:00)
[2020-04-20] MEDS: LACTATED RINGERS 1,000 ML IV SCH (21:17)
[2020-04-20] MEDS: QUETIAPINE 25MG TABLET PO SCH (21:38)
[2020-04-20 21:45] LABS: BASOPHILS % (AUTO) 1 % (0-1); EOSINOPHILS % (AUTO) 1 % (1-7); LYMPHOCYTES % (AUTO) 34 % (22-44); MEAN CORPUSCULAR HEMOGLOBIN 26.1 pg (27.0-34.8); MEAN CORPUSCULAR HGB CONC 32.4 g/dL (32.4-35.8); MEAN PLATELET VOLUME 8.2 fL (7.4-10.4); MONOCYTES % (AUTO) 15 % (2-9); NEUTROPHILS % (AUTO) 49 % (42-75); PLATELET COUNT 264 x10^3/uL (130-400); RED BLOOD COUNT 3.81 x10^6/uL (3.82-5.3); RED CELL DISTRIBUTION WIDTH 19.1 % (9.6-15.2)
[2020-04-20 21:52] LABS: MD NO
[2020-04-20 21:58] LABS: ALANINE AMINOTRANSFERASE 50 U/L (12-78); ALBUMIN 3.5 g/dL (3.4-5.0); ANION GAP 8 mmol/L (5-15); CHLORIDE 111 mmol/L (98-107)
[2020-04-20 22:07] LABS: ALKALINE PHOSPHATASE 103 U/L (45-117); BILIRUBIN,TOTAL 0.6 mg/dL (0.2-1.0); CREATININE 0.64 mg/dL (0.55-1.02); TOTAL PROTEIN 6.9 g/dL (6.4-8.2)
[2020-04-20 22:10] LABS: MICROSCOPIC AUTO
[2020-04-20 22:25] LABS: FREE T4 (FREE THYROXINE) 0.95 ng/dL (0.76-1.46)
[2020-04-20 23:57] VITALS: BP 128/86
[2020-04-21] VITALS (8 sets, daily range): BP systolic 99–125; BP diastolic 69–80
[2020-04-21] MEDS: morphine SULFATE 10 MG/ML, 1ML IVPush PRN ×6 (00:05→20:53)
[2020-04-21] MEDS: MELATONIN 5 MG TABLET PO PRN ×2 (01:51→20:52)
[2020-04-21] MEDS: ALPRazolam 1MG TAB PO PRN (01:51)
[2020-04-21] MEDS ORDERED: MELA5TAB14 PO (03:57)
[2020-04-21] MEDS ORDERED: APIX5TAB PO (03:57)
[2020-04-21] MEDS ORDERED: DOXE50CA PO (03:57)
[2020-04-21] MEDS: LACTATED RINGERS 1,000 ML IV SCH ×3 (06:21→20:53)
[2020-04-21] MEDS ORDERED: MAGNESIUM SULFATE PMX 4GM/100M 100 ML IVPB ONE (07:30)
[2020-04-21] MEDS ORDERED: OMEPRAZOLE 20 MG CAPSULE.DR PO SCH (07:30)
[2020-04-21] MEDS: SENNA/DOCUSATE TABLET PO SCH (08:02)
[2020-04-21 10:43] LABS: OCCULT BLOOD NEGATIVE (NEGATIVE)
[2020-04-21] MEDS ORDERED: METOCLOPRAMIDE 5 MG/ML, 2ML IVPush SCH (13:30)
[2020-04-21] MEDS: OMEPRAZOLE 20 MG CAPSULE.DR PO SCH ×2 (13:30→20:52)
[2020-04-21] MEDS: ONDANSETRON 2MG/ML, 2ML IVPush PRN (13:53)
[2020-04-21] MEDS: QUETIAPINE 25MG TABLET PO SCH (20:52)
[2020-04-21] MEDS: APIXABAN 5 MG TABLET PO SCH (20:52)
[2020-04-21] MEDS: OXYcodone IR 5MG TABLET PO PRN (22:13)
[2020-04-22 00:31] VITALS: BP 100/63
[2020-04-22] MEDS: morphine SULFATE 10 MG/ML, 1ML IVPush PRN ×6 (00:39→22:35)
[2020-04-22] MEDS: LACTATED RINGERS 1,000 ML IV SCH (07:36)
[2020-04-22 08:11] VITALS: BP 124/78
[2020-04-22] MEDS: OMEPRAZOLE 20 MG CAPSULE.DR PO SCH (09:00)
[2020-04-22] MEDS: SENNA/DOCUSATE TABLET PO SCH (09:00)
[2020-04-22] MEDS: APIXABAN 5 MG TABLET PO SCH ×2 (09:00→19:27)
[2020-04-22 09:16] LABS: MEAN CORPUSCULAR HGB CONC 32.4 g/dL (32.4-35.8); MEAN PLATELET VOLUME 8.1 fL (7.4-10.4); PLATELET COUNT 231 x10^3/uL (130-400); RED CELL DISTRIBUTION WIDTH 19.3 % (9.6-15.2)
[2020-04-22 09:18] LABS: MD YES
[2020-04-22 09:32] LABS: EOS#(MANUAL) 0.04 x10^3/uL (0.0-0.4); EOS% (MANUAL) 2 % (1-7); LYMPH#(MANUAL) 0.59 x10^3/uL (1-3.4); LYMPHS% (MANUAL) 33 % (22-44); MONOS#(MANUAL) 0.09 x10^3/uL (0.3-2.7); MONOS% (MANUAL) 5 % (2-9); SEG#(MANUAL) 1.08 x10^3/uL (1.8-6.8); SEGS% (MANUAL) 60 % (42-75)
[2020-04-22 09:33] LABS: <PLATELET ESTIMATE> ADEQUATE; <PLT MORPHOLOGY> NORMAL PLT MORPH; OVALOCYTES 1+
[2020-04-22] MEDS ORDERED: ONDANSETRON 2MG/ML, 2ML IVPush PRN (10:30)
[2020-04-22] MEDS ORDERED: HYDROcodone/APAP 7.5-325MG/15ML UDC PO PRN (10:30)
[2020-04-22] MEDS ORDERED: PROMETHAZINE 25 MG/ML, 1ML IVPush PRN (10:30)
[2020-04-22] MEDS ORDERED: OXYcodone 5 MG/5 ML ORAL.SOL UDC PO PRN (10:30)
[2020-04-22] MEDS ORDERED: MIDAZOLAM 1 MG/ML, 2ML ONE (10:34)
[2020-04-22] MEDS ORDERED: PROPOFOL 50 ML ONE (10:35)
[2020-04-22] MEDS ORDERED: CHLORHEXIDINE 15 ML UDC ONE (10:43)
[2020-04-22] MEDS ORDERED: FENTANYL PF 100 MCG/2ML ONE ×3 (10:49→11:45)
[2020-04-22] MEDS ORDERED: OXYcodone 5 MG/5 ML ORAL.SOL UDC ONE (11:26)
[2020-04-22] MEDS: FENTANYL PF 100 MCG/2ML IV PRN ×4 (11:28→11:59)
[2020-04-22] MEDS ORDERED: HYDROmorphone 1 MG/ML, 1ML INJ ONE (11:45)
[2020-04-22] MEDS: HYDROmorphone 1 MG/ML, 1ML INJ IVPush PRN ×2 (11:48→11:55)
[2020-04-22 12:20] VITALS: BP 125/74
[2020-04-22] MEDS: ONDANSETRON 2MG/ML, 2ML IVPush PRN ×2 (15:33→21:00)
[2020-04-22 19:14] VITALS: BP 164/93
[2020-04-22 19:20] VITALS: BP 131/83
[2020-04-22] MEDS: MELATONIN 5 MG TABLET PO PRN (19:26)
[2020-04-22] MEDS: POLYETHYLENE GLYCOL 17 GM PACKET PO SCH (19:27)
[2020-04-22] MEDS: ALPRazolam 1MG TAB PO PRN (19:39)
[2020-04-22] MEDS: OXYcodone IR 5MG TABLET PO PRN (20:52)
[2020-04-23] MEDS: OXYcodone IR 5MG TABLET PO PRN ×2 (00:52→10:53)
[2020-04-23 00:57] VITALS: BP 119/75
[2020-04-23] MEDS: morphine SULFATE 10 MG/ML, 1ML IVPush PRN ×7 (01:35→22:32)
[2020-04-23 05:48] LABS: MEAN CORPUSCULAR HEMOGLOBIN 25.9 pg (27.0-34.8); MEAN CORPUSCULAR HGB CONC 32.4 g/dL (32.4-35.8); MEAN PLATELET VOLUME 8.5 fL (7.4-10.4); PLATELET COUNT 242 x10^3/uL (130-400); RED BLOOD COUNT 3.59 x10^6/uL (3.82-5.3); RED CELL DISTRIBUTION WIDTH 20.1 % (9.6-15.2)
[2020-04-23] MEDS ORDERED: APIXABAN 5 MG TABLET PO SCH ×3 (06:00→08:50)
[2020-04-23 06:23] LABS: MD YES
[2020-04-23 06:26] LABS: BASOS#(MANUAL) 0.02 x10^3/uL (0-0.1); BASOS% (MANUAL) 1 % (0-1); EOS#(MANUAL) 0.03 x10^3/uL (0.0-0.4); EOS% (MANUAL) 2 % (1-7); LYMPH#(MANUAL) 0.71 x10^3/uL (1-3.4); LYMPHS% (MANUAL) 42 % (22-44); MONOS#(MANUAL) 0.29 x10^3/uL (0.3-2.7); MONOS% (MANUAL) 17 % (2-9); SEG#(MANUAL) 0.65 x10^3/uL (1.8-6.8); SEGS% (MANUAL) 38 % (42-75)
[2020-04-23 06:28] LABS: ANISOCYTOSIS 1+; HYPOCHROMIA 1+; MICROCYTOSIS 1+; OVALOCYTES 1+
[2020-04-23 06:29] LABS: <PLATELET ESTIMATE> ADEQUATE; <PLT MORPHOLOGY> NORMAL PLT MORPH
[2020-04-23 06:53] VITALS: BP 100/68
[2020-04-23] MEDS: APIXABAN 5 MG TABLET PO SCH (08:09)
[2020-04-23] MEDS: SENNA/DOCUSATE TABLET PO SCH (08:16)
[2020-04-23] MEDS: POLYETHYLENE GLYCOL 17 GM PACKET PO SCH ×2 (08:16→19:21)
[2020-04-23] MEDS ORDERED: GOLYTELY 4,000ML ORAL.SOL PO ONE (09:00)
[2020-04-23 12:44] VITALS: BP 132/88
[2020-04-23] MEDS: ALPRazolam 1MG TAB PO PRN (19:23)
[2020-04-23 19:43] VITALS: BP 140/89
[2020-04-24 01:12] VITALS: BP 123/75
[2020-04-24] MEDS: morphine SULFATE 10 MG/ML, 1ML IVPush PRN ×3 (01:42→15:45)
[2020-04-24] MEDS: MELATONIN 5 MG TABLET PO PRN (01:44)
[2020-04-24] MEDS: OXYcodone IR 5MG TABLET PO PRN (01:45)
[2020-04-24 07:01] LABS: MEAN CORPUSCULAR HEMOGLOBIN 25.9 pg (27.0-34.8); MEAN CORPUSCULAR HGB CONC 32.7 g/dL (32.4-35.8); MEAN PLATELET VOLUME 8.8 fL (7.4-10.4); PLATELET COUNT 205 x10^3/uL (130-400); RED BLOOD COUNT 3.39 x10^6/uL (3.82-5.3); RED CELL DISTRIBUTION WIDTH 20.1 % (9.6-15.2)
[2020-04-24 07:02] LABS: MD YES
[2020-04-24 07:13] LABS: CHLORIDE 106 mmol/L (98-107)
[2020-04-24 07:20] LABS: ALANINE AMINOTRANSFERASE 95 U/L (12-78); ALBUMIN 3.2 g/dL (3.4-5.0); ALKALINE PHOSPHATASE 78 U/L (45-117); ANION GAP 5 mmol/L (5-15); BILIRUBIN,TOTAL 0.5 mg/dL (0.2-1.0)
[2020-04-24 07:36] LABS: EOS#(MANUAL) 0.07 x10^3/uL (0.0-0.4); EOS% (MANUAL) 4 % (1-7); LYMPH#(MANUAL) 0.61 x10^3/uL (1-3.4); LYMPHS% (MANUAL) 36 % (22-44); MONOS#(MANUAL) 0.26 x10^3/uL (0.3-2.7); MONOS% (MANUAL) 15 % (2-9); SEG#(MANUAL) 0.77 x10^3/uL (1.8-6.8); SEGS% (MANUAL) 45 % (42-75)
[2020-04-24 07:37] LABS: ANISOCYTOSIS 1+; OVALOCYTES 1+
[2020-04-24 07:38] LABS: <PLATELET ESTIMATE> ADEQUATE; <PLT MORPHOLOGY> NORMAL PLT MORPH; HYPOCHROMIA 1+; MICROCYTOSIS 1+
[2020-04-24] MEDS ORDERED: OXYcodone 5 MG/5 ML ORAL.SOL UDC PO PRN (08:00)
[2020-04-24] MEDS ORDERED: HYDROmorphone 1 MG/ML, 1ML INJ IVPush PRN (08:00)
[2020-04-24] MEDS ORDERED: hydrALAzine 20 MG/ML, 1ML IV PRN (08:00)
[2020-04-24] MEDS ORDERED: LABETALOL 5MG/ML, 20ML IV PRN (08:00)
[2020-04-24] MEDS ORDERED: ONDANSETRON 2MG/ML, 2ML IVPush PRN (08:00)
[2020-04-24] MEDS ORDERED: PROMETHAZINE 25 MG/ML, 1ML IVPush PRN (08:00)
[2020-04-24] MEDS: POLYETHYLENE GLYCOL 17 GM PACKET PO SCH (08:18)
[2020-04-24] MEDS: SENNA/DOCUSATE TABLET PO SCH (08:18)
[2020-04-24 08:29] VITALS: BP 110/70
[2020-04-24] MEDS ORDERED: FENTANYL PF 100 MCG/2ML ONE ×3 (09:20→10:57)
[2020-04-24] MEDS ORDERED: MIDAZOLAM 1 MG/ML, 2ML ONE (09:20)
[2020-04-24] MEDS ORDERED: CHLORHEXIDINE 15 ML UDC ONE (09:32)
[2020-04-24] MEDS ORDERED: PROPOFOL 10 MG/ML, 20ML ONE ×2 (10:09)
[2020-04-24] MEDS: FENTANYL PF 100 MCG/2ML IV PRN ×3 (10:33→11:02)
[2020-04-24] MEDS: ALPRazolam 1MG TAB PO PRN (11:47)
[2020-04-24] MEDS ORDERED: SENN-211 PO (16:48)
[2020-04-24] MEDS ORDERED: OXYC1TAB18 PO (16:48)
[2020-04-24] MEDS ORDERED: ONDA4TAB7 PO (16:48)
== END 2020-04-24 17:38 | disposition home or self-care (01) | DRG 391 ==
LOC: 3N 18:51
PROVIDERS: ADMIT Family Medicine; ATTEND Hospitalist
PROC: 0DJ08ZZ Inspection of Upper Intestinal Tract, Via Natural or Artificial Opening Endoscopic (ICD-10-PCS; principal; 2020-04-22 11:00)
PROC: 0DJD8ZZ Inspection of Lower Intestinal Tract, Via Natural or Artificial Opening Endoscopic (ICD-10-PCS; 2020-04-24)
DX: R10.84 Generalized abdominal pain (principal); E43 Unspecified severe protein-calorie malnutrition; F11.20 Opioid dependence, uncomplicated; C78.00 Secondary malignant neoplasm of unspecified lung; Z20.822 Contact with and (suspected) exposure to COVID-19; D64.9 Anemia, unspecified; D72.819 Decreased white blood cell count, unspecified; F41.9 Anxiety disorder, unspecified; Z86.16 Personal history of COVID-19; G89.4 Chronic pain syndrome; F31.9 Bipolar disorder, unspecified; K59.09 Other constipation; K76.0 Fatty (change of) liver, not elsewhere classified; Z86.711 Personal history of pulmonary embolism; Z88.1 Allergy status to other antibiotic agents; Z90.710 Acquired absence of both cervix and uterus; Z90.49 Acquired absence of other specified parts of digestive tract; Z90.3 Acquired absence of stomach [part of]; Z91.040 Latex allergy status; Z88.8 Allergy status to other drugs, medicaments and biological substances; Z88.6 Allergy status to analgesic agent; Z86.19 Personal history of other infectious and parasitic diseases; Z90.722 Acquired absence of ovaries, bilateral; Z80.8 Family history of malignant neoplasm of other organs or systems; Z80.0 Family history of malignant neoplasm of digestive organs; Z86.718 Personal history of other venous thrombosis and embolism; Z79.01 Long term (current) use of anticoagulants; Z79.899 Other long term (current) drug therapy; Z68.24 Body mass index [BMI] 24.0-24.9, adult
CPT/HCPCS: 36415; 74250; 80053; 81001; 82272; 83690; 83735; 84100; 84439; 84443; 85025; 87086; 87635; G0378; J1170; J2250; J2405; J2704; J3010; J2270; J3475; J7120

== ENCOUNTER 2020-04-26 01:12 | Inpatient (IN) | payer OTHER, MEDICARE ==
[~2020-04-26] VITALS: Ht 175.3 cm; Wt 72.9 kg
[~2020-04-26 01:12] MED LIST changes: +DOXE50CA PO; +ONDA4TAB7 PO; +SENN-211 PO
[2020-04-27 01:00] VITALS: BP 111/73
[2020-04-27] MEDS: SODIUM CHLORIDE 0.9% 1,000 ML IV SCH ×2 (01:30→03:00)
[2020-04-27] MEDS ORDERED: ACETAMINOPHEN 325 MG TABLET PO PRN (01:30)
[2020-04-27] MEDS ORDERED: POTASSIUM CHLORIDE 40 MEQ in SODIUM CHLORIDE 0.9% 500 ML IV ONE (01:30)
[2020-04-27] MEDS ORDERED: ONDANSETRON 2MG/ML, 2ML IVPush PRN (01:30)
[2020-04-27] MEDS ORDERED: DOCUSATE 100 MG CAPSULE PO PRN (01:30)
[2020-04-27] MEDS ORDERED: ONDANSETRON 4 MG TABLET PO PRN (01:30)
[2020-04-27] MEDS: ALPRazolam 1MG TAB PO SCH ×4 (02:27→21:40)
[2020-04-27] MEDS: morphine SULFATE 10 MG/ML, 1ML IVPush PRN ×3 (02:28→16:00)
[2020-04-27] MEDS: APIXABAN 5 MG TABLET PO SCH ×3 (02:30→21:40)
[2020-04-27 07:06] VITALS: BP 93/71
[2020-04-27] MEDS ORDERED: APIXABAN 5 MG TABLET PO SCH (09:00)
[2020-04-27] MEDS ORDERED: METOCLOPRAMIDE 10MG TABLET PO SCH (12:00)
[2020-04-27 12:06] VITALS: BP 107/71
[2020-04-27] MEDS: OXYcodone/APAP 10/325MG TABLET PO PRN ×2 (13:40→21:40)
[2020-04-27] MEDS ORDERED: MELATONIN 5 MG TABLET PO SCH (21:00)
[2020-04-27] MEDS ORDERED: DOXEPIN 25 MG CAPSULE PO SCH (21:00)
[2020-04-27 21:45] VITALS: BP 113/79
[2020-04-27] MEDS ORDERED: OMNIPAQUE 350 MG/ML, 100ML BOTTLE ONE (22:00)
[2020-04-28 02:07] VITALS: BP 110/63
[2020-04-28] MEDS: OXYcodone/APAP 10/325MG TABLET PO PRN (03:09)
[2020-04-28] MEDS: morphine SULFATE 10 MG/ML, 1ML IVPush PRN ×2 (03:30→09:51)
[2020-04-28 06:28] LABS: MEAN CORPUSCULAR HEMOGLOBIN 25.8 pg (27.0-34.8); MEAN CORPUSCULAR HGB CONC 32.6 g/dL (32.4-35.8); MEAN PLATELET VOLUME 9.1 fL (7.4-10.4); PLATELET COUNT 163 x10^3/uL (130-400); RED BLOOD COUNT 3.21 x10^6/uL (3.82-5.3); RED CELL DISTRIBUTION WIDTH 19.8 % (9.6-15.2)
[2020-04-28 06:32] LABS: ANION GAP 4 mmol/L (5-15); CALCIUM 7.6 mg/dL (8.5-10.1); CHLORIDE 110 mmol/L (98-107)
[2020-04-28 06:38] VITALS: BP 80/50
[2020-04-28 07:22] LABS: MD YES
[2020-04-28 07:25] LABS: SEG#(MANUAL) 0.52 x10^3/uL (1.8-6.8); SEGS% (MANUAL) 37 % (42-75)
[2020-04-28 07:27] LABS: <PLATELET ESTIMATE> ADEQUATE; <PLT MORPHOLOGY> NORMAL PLT MORPH; ANISOCYTOSIS 1+; EOS#(MANUAL) 0.04 x10^3/uL (0.0-0.4); EOS% (MANUAL) 3 % (1-7); HYPOCHROMIA 1+; LYMPHS% (MANUAL) 43 % (22-44); MICROCYTOSIS 1+; MONOS#(MANUAL) 0.24 x10^3/uL (0.3-2.7); MONOS% (MANUAL) 17 % (2-9); OVALOCYTES 1+
[2020-04-28] MEDS ORDERED: POTASSIUM CHLORIDE 20 MEQ TAB.ER.PRT PO ONE (08:00)
[2020-04-28] MEDS ORDERED: POLYETHYLENE GLYCOL 17 GM PACKET PO SCH (09:00)
[2020-04-28] MEDS ORDERED: SENNA/DOCUSATE TABLET PO SCH (09:00)
[2020-04-28] MEDS ORDERED: BISACODYL 10 MG SUPP PR SCH (09:00)
[2020-04-28] MEDS: ALPRazolam 1MG TAB PO SCH (09:51)
[2020-04-28] MEDS: APIXABAN 5 MG TABLET PO SCH (09:52)
[2020-04-28 12:13] VITALS: BP 109/65
[2020-04-28] MEDS ORDERED: MORPHINE SULFATE 4 MG/ML, 1ML IVPush PRN (13:30)
== END 2020-04-28 16:40 | disposition left against medical advice (07) | DRG 392 ==
LOC: PREINTOOBSV 01:12 → 4WST 04-27 01:34 → OBSVTOIN 04-27 13:33 → 4WST 04-28 07:31
PROVIDERS: ADMIT Hospitalist; ATTEND Hospitalist
DX: R10.9 Unspecified abdominal pain (principal); D61.818 Other pancytopenia; E87.6 Hypokalemia; F41.9 Anxiety disorder, unspecified; G89.29 Other chronic pain; Z86.711 Personal history of pulmonary embolism; Z79.01 Long term (current) use of anticoagulants; Z76.5 Malingerer [conscious simulation]; Z86.16 Personal history of COVID-19; Z53.29 Procedure and treatment not carried out because of patient's decision for other reasons
CPT/HCPCS: 36415; 71045; 74177; 80048; 80051; 83735; 85025; G0378; J3480; Q9967; J2270; J7030; J7040

== ENCOUNTER 2020-05-16 20:19 | Emergency (ER) | payer OTHER, MEDICARE ==
[~2020-05-16] VITALS: Ht 175.3 cm; Wt 69.8 kg
[2020-05-16] MEDS ORDERED: LORazepam 1MG TABLET ONE (22:18)
[2020-05-16] MEDS ORDERED: HYDROcodone/APAP 5/325 TABLET ONE (22:19)
[2020-05-16] MEDS ORDERED: LORazepam 1MG TABLET PO ONE (22:30)
[2020-05-16] MEDS ORDERED: HYDROcodone/APAP 5/325 TABLET PO ONE (22:30)
[2020-05-16 22:46] VITALS: BP 118/75
== END 2020-05-16 22:50 | disposition home or self-care (01) ==
LOC: ED 21:16
DX: I82.621 Acute embolism and thrombosis of deep veins of right upper extremity (principal); M79.621 Pain in right upper arm; Z85.118 Personal history of other malignant neoplasm of bronchus and lung; Z90.49 Acquired absence of other specified parts of digestive tract; Z88.1 Allergy status to other antibiotic agents
CPT/HCPCS: 99284

== ENCOUNTER → 2020-06-03 | Outpatient (CLI) | payer OTHER, MEDICARE | END | disposition home or self-care (01) | LOC: LAB 10:02 | PROVIDERS: ATTEND Internal Medicine | DX: C7A.8 Other malignant neuroendocrine tumors (principal); E34.2 Ectopic hormone secretion, not elsewhere classified | CPT/HCPCS: 84586 ==

== ENCOUNTER 2020-06-08 21:03 | Inpatient (IN) | payer OTHER, MEDICARE ==
[~2020-06-08] VITALS: Ht 175.3 cm; Wt 71.3 kg
[2020-06-08] MEDS ORDERED: ONDANSETRON 2MG/ML, 2ML IVPush ONE (21:30)
[2020-06-08] MEDS ORDERED: SODIUM CHLORIDE 0.9% 1,000ML IVBOLUS ONE ×2 (21:30→22:30)
[2020-06-08] MEDS ORDERED: ONDANSETRON 2MG/ML, 2ML ONE (21:33)
[2020-06-08] MEDS ORDERED: MORPHINE SULFATE 4 MG/ML, 1ML ONE ×2 (21:33→22:32)
[2020-06-08] MEDS: MORPHINE SULFATE 4 MG/ML, 1ML IVPush PRN ×2 (21:37→23:04)
[2020-06-08 21:54] LABS: BASOPHILS % (AUTO) 1 % (0-1); EOSINOPHILS % (AUTO) 1 % (1-7); LYMPHOCYTES % (AUTO) 33 % (22-44); MEAN CORPUSCULAR HEMOGLOBIN 24.5 pg (27.0-34.8); MEAN CORPUSCULAR HGB CONC 31.9 g/dL (32.4-35.8); MEAN PLATELET VOLUME 8.6 fL (7.4-10.4); MONOCYTES % (AUTO) 13 % (2-9); NEUTROPHILS % (AUTO) 53 % (42-75); PLATELET COUNT 201 x10^3/uL (130-400); RED BLOOD COUNT 3.61 x10^6/uL (3.82-5.3); RED CELL DISTRIBUTION WIDTH 18.6 % (9.6-15.2)
[2020-06-08 21:56] LABS: MD NO
[2020-06-08 22:06] LABS: ALANINE AMINOTRANSFERASE 39 U/L (12-78); ALBUMIN 3.4 g/dL (3.4-5.0); ANION GAP 12 mmol/L (5-15); CALCIUM 7.8 mg/dL (8.5-10.1); CHLORIDE 110 mmol/L (98-107); CREATININE 0.88 mg/dL (0.55-1.02)
[2020-06-08 22:10] LABS: ALKALINE PHOSPHATASE 97 U/L (45-117); BILIRUBIN,TOTAL 0.4 mg/dL (0.2-1.0); TOTAL PROTEIN 6.1 g/dL (6.4-8.2); TROPONIN I < 0.015 ng/mL (0.000-0.045)
[2020-06-08] MEDS ORDERED: OMNIPAQUE 350 MG/ML, 100ML BOTTLE ONE (22:58)
[2020-06-08 23:16] LABS: MICROSCOPIC AUTO
[2020-06-08] MEDS ORDERED: QUET25TA5 PO (23:44)
[2020-06-09] VITALS (7 sets, daily range): BP systolic 91–118; BP diastolic 67–81
[2020-06-09] MEDS ORDERED: ONDANSETRON 2MG/ML, 2ML IVPush PRN
[2020-06-09] MEDS ORDERED: ENOXAPARIN 40 MG/0.4 ML SQ SCH (00:30)
[2020-06-09] MEDS ORDERED: DOCUSATE 100 MG CAPSULE PO PRN (00:30)
[2020-06-09] MEDS ORDERED: BISACODYL 10 MG SUPP PR PRN (00:30)
[2020-06-09] MEDS ORDERED: SODIUM CHLORIDE 0.9% 1,000 ML IV SCH (00:30)
[2020-06-09] MEDS ORDERED: ONDANSETRON ODT 4 MG PO PRN (00:30)
[2020-06-09] MEDS: MELATONIN 5 MG TABLET PO SCH ×2 (01:21→22:07)
[2020-06-09] MEDS: ALPRazolam 1MG TAB PO PRN (01:24)
[2020-06-09] MEDS: QUETIAPINE 25MG TABLET PO SCH ×2 (01:24→22:07)
[2020-06-09] MEDS: morphine SULFATE 10 MG/ML, 1ML IVPush PRN ×7 (01:24→22:25)
[2020-06-09] MEDS: DOXEPIN 25 MG CAPSULE PO SCH ×2 (01:25→22:07)
[2020-06-09] MEDS: APIXABAN/LOVENOX MC SCH ×2 (01:30→09:30)
[2020-06-09] MEDS ORDERED: ACETAMINOPHEN 325 MG TABLET PO PRN (07:30)
[2020-06-09] MEDS: POLYETHYLENE GLYCOL 17 GM PACKET PO SCH (08:18)
[2020-06-09] MEDS: CEFTRIAXONE PMX 1GM/50ML 50 ML IV SCH (08:20)
[2020-06-09] MEDS: APIXABAN 5 MG TABLET PO SCH ×2 (09:15→22:07)
[2020-06-09] MEDS: SODIUM CHLORIDE 0.9% 1,000 ML IV SCH (09:23)
[2020-06-09] MEDS: ONDANSETRON 2MG/ML, 2ML IVPush PRN ×2 (15:07→22:07)
[2020-06-10 00:21] VITALS: BP 129/83
[2020-06-10] MEDS ORDERED: SODIUM CHLORIDE 0.9% 1,000 ML IV SCH ×2 (00:30→09:00)
[2020-06-10] MEDS: morphine SULFATE 10 MG/ML, 1ML IVPush PRN ×2 (01:43→04:42)
[2020-06-10] MEDS: SODIUM CHLORIDE 0.9% 1,000 ML IV SCH (04:00)
[2020-06-10 05:59] LABS: BASOPHILS % (AUTO) 1 % (0-1); EOSINOPHILS % (AUTO) 3 % (1-7); LYMPHOCYTES % (AUTO) 33 % (22-44); MEAN CORPUSCULAR HEMOGLOBIN 25.4 pg (27.0-34.8); MEAN CORPUSCULAR HGB CONC 31.8 g/dL (32.4-35.8); MEAN PLATELET VOLUME 8.4 fL (7.4-10.4); MONOCYTES % (AUTO) 15 % (2-9); NEUTROPHILS % (AUTO) 48 % (42-75); PLATELET COUNT 179 x10^3/uL (130-400); RED BLOOD COUNT 3.34 x10^6/uL (3.82-5.3); RED CELL DISTRIBUTION WIDTH 18.8 % (9.6-15.2)
[2020-06-10 06:01] LABS: % IRON SATURATION 7 % (20-55); ANION GAP 6 mmol/L (5-15); CALCIUM 7.7 mg/dL (8.5-10.1); CHLORIDE 111 mmol/L (98-107); CREATININE 0.65 mg/dL (0.55-1.02); IRON LEVEL 26 mcg/dL (50-170); MD NO; TOTAL IRON BINDING CAPACITY 399 mcg/dL (250-450)
[2020-06-10 07:08] VITALS: BP 135/86
[2020-06-10] MEDS ORDERED: morphine SULFATE 10 MG/ML, 1ML IVPush PRN (07:30)
[2020-06-10] MEDS: FERROUS SULFATE 220 MG/5 ML ORAL SOL PO SCH ×2 (07:30→07:57)
[2020-06-10] MEDS: CEFTRIAXONE PMX 1GM/50ML 50 ML IV SCH (07:40)
[2020-06-10 07:43] VITALS: BP_SYST 114; BP_SYST 125; BP_DIAS 70; BP_DIAS 75
[2020-06-10 07:44] VITALS: BP 114/78
[2020-06-10] MEDS: POLYETHYLENE GLYCOL 17 GM PACKET PO SCH (09:00)
[2020-06-10] MEDS: APIXABAN 5 MG TABLET PO SCH (09:24)
[2020-06-10] MEDS: ALPRazolam 1MG TAB PO PRN (09:24)
[2020-06-10] MEDS ORDERED: FERR220E PO (10:01)
== END 2020-06-10 11:16 | disposition home or self-care (01) | DRG 641 ==
LOC: ED 22:57 → EDIP 06-09 → 3N 06-09 00:45
PROVIDERS: ADMIT Internal Medicine; ATTEND Internal Medicine
DX: E86.0 Dehydration (principal); C16.9 Malignant neoplasm of stomach, unspecified; N39.0 Urinary tract infection, site not specified; K56.7 Ileus, unspecified; E87.2 Acidosis; D50.9 Iron deficiency anemia, unspecified; G89.29 Other chronic pain; Z86.16 Personal history of COVID-19; F41.9 Anxiety disorder, unspecified; I95.1 Orthostatic hypotension; Z80.8 Family history of malignant neoplasm of other organs or systems; Z86.711 Personal history of pulmonary embolism; Z86.718 Personal history of other venous thrombosis and embolism; Z90.710 Acquired absence of both cervix and uterus; Z88.1 Allergy status to other antibiotic agents; Z88.8 Allergy status to other drugs, medicaments and biological substances; Z88.6 Allergy status to analgesic agent; Z79.899 Other long term (current) drug therapy; Z91.040 Latex allergy status; Z90.49 Acquired absence of other specified parts of digestive tract
CPT/HCPCS: 36415; 71275; 74177; 80048; 80053; 81001; 83540; 83550; 83605; 84145; 84484; 85025; 87040; 87077; 87086; 87186; 93005; 93306; 93880; 96361; 96374; 96375; 96376; 99285; G0378; J0696; J2405; Q9967; J2270; J7030

== ENCOUNTER 2020-06-18 17:11 | Emergency (ER) | payer OTHER, MEDICARE ==
[~2020-06-18] VITALS: Ht 175.3 cm; Wt 70.6 kg
[~2020-06-18 17:11] MED LIST changes: +FERR220E PO; +QUET25TA5 PO
[2020-06-18 18:14] LABS: BASOPHILS % (AUTO) 2 % (0-1); EOSINOPHILS % (AUTO) 1 % (1-7); LYMPHOCYTES % (AUTO) 30 % (22-44); MEAN CORPUSCULAR HEMOGLOBIN 24.7 pg (27.0-34.8); MEAN CORPUSCULAR HGB CONC 31.7 g/dL (32.4-35.8); MEAN PLATELET VOLUME 8.3 fL (7.4-10.4); MONOCYTES % (AUTO) 12 % (2-9); NEUTROPHILS % (AUTO) 55 % (42-75); PLATELET COUNT 344 x10^3/uL (130-400); RED BLOOD COUNT 3.63 x10^6/uL (3.82-5.3); RED CELL DISTRIBUTION WIDTH 18.8 % (9.6-15.2)
[2020-06-18 18:15] LABS: MD NO
--- NOTE | 2020-06-18 18:15 | NUR ---
ROLLER STITCHER: PT TO ROOM FROM LOBBY VIA W/C
[2020-06-18 18:25] LABS: ALBUMIN 3.6 g/dL (3.4-5.0); ANION GAP 6 mmol/L (5-15); CALCIUM 8.3 mg/dL (8.5-10.1); CHLORIDE 111 mmol/L (98-107)
[2020-06-18 18:29] LABS: ALANINE AMINOTRANSFERASE 34 U/L (12-78); ALKALINE PHOSPHATASE 96 U/L (45-117); BILIRUBIN,TOTAL 0.4 mg/dL (0.2-1.0); CREATININE 0.87 mg/dL (0.55-1.02); TOTAL PROTEIN 6.9 g/dL (6.4-8.2)
[2020-06-18 19:52] LABS: MICROSCOPIC NOT IND
[2020-06-18 19:55] VITALS: BP 130/82
== END 2020-06-18 21:39 | disposition home or self-care (01) ==
LOC: ED 19:14
DX: G89.29 Other chronic pain (principal); R10.2 Pelvic and perineal pain; M54.5 Low back pain; R11.2 Nausea with vomiting, unspecified; Z90.89 Acquired absence of other organs; Z90.49 Acquired absence of other specified parts of digestive tract; Z86.39 Personal history of other endocrine, nutritional and metabolic disease; Z85.118 Personal history of other malignant neoplasm of bronchus and lung; Z85.028 Personal history of other malignant neoplasm of stomach
CPT/HCPCS: 36415; 80053; 81003; 83690; 85025; 93005; 99284

== ENCOUNTER 2020-07-08 12:11 | Inpatient (IN) | payer OTHER, MEDICARE ==
[~2020-07-08] VITALS: Ht 175.3 cm; Wt 70.7 kg
--- NOTE | 2020-07-08 12:34 | NUR ---
PT CHANGED INTO GOWN, MONITORS IN PLACE. CALL LIGHT WITHIN REACH. NO NEEDS AT THIS TIME
[2020-07-08] MEDS ORDERED: MORPHINE SULFATE 4 MG/ML, 1ML ONE ×2 (13:25→15:32)
[2020-07-08] MEDS ORDERED: ONDANSETRON 2MG/ML, 2ML ONE (13:25)
[2020-07-08] MEDS ORDERED: ONDANSETRON 2MG/ML, 2ML IVPush ONE (13:30)
[2020-07-08] MEDS ORDERED: SODIUM CHLORIDE 0.9% 1,000 ML IV ONE (13:30)
[2020-07-08] MEDS ORDERED: SODIUM CHLORIDE FLUSH 10ML SYR IVF ONE (13:30)
--- NOTE | 2020-07-08 13:35 | NUR ---
LAB AND IV DELAY D/T UNABLE TO OBTAIN ACCESS DESPITE MULTIPLE ATTEMPTS BY STAFF. AWAITING FURTHER ATTEMPTS FOR IV ACCESS
--- NOTE | 2020-07-08 14:14 | NUR ---
PT SITTING ON CARLA AYOUB/MARICRUZ. CALL LIGHT WITHIN REACH. NO NEEDS AT THIS TIME
[2020-07-08] MEDS: MORPHINE SULFATE 4 MG/ML, 1ML IVPush PRN ×2 (14:57→15:33)
[2020-07-08 15:03] LABS: BASOPHILS % (AUTO) 2 % (0-1); EOSINOPHILS % (AUTO) 1 % (1-7); LYMPHOCYTES % (AUTO) 28 % (22-44); MEAN CORPUSCULAR HEMOGLOBIN 23.6 pg (27.0-34.8); MONOCYTES % (AUTO) 13 % (2-9); NEUTROPHILS % (AUTO) 57 % (42-75); PLATELET COUNT 313 x10^3/uL (130-400); RED BLOOD COUNT 3.27 x10^6/uL (3.82-5.3); RED CELL DISTRIBUTION WIDTH 18.3 % (9.6-15.2)
[2020-07-08 15:10] LABS: MD NO
[2020-07-08 15:11] LABS: ALANINE AMINOTRANSFERASE 37 U/L (12-78); ALBUMIN 3.6 g/dL (3.4-5.0); ANION GAP 6 mmol/L (5-15); CHLORIDE 110 mmol/L (98-107); CREATININE 0.72 mg/dL (0.55-1.02)
[2020-07-08 15:16] LABS: ALKALINE PHOSPHATASE 92 U/L (45-117); BILIRUBIN,TOTAL 0.4 mg/dL (0.2-1.0); TROPONIN I < 0.015 ng/mL (0.000-0.045)
--- NOTE | 2020-07-08 15:28 | NUR ---
PT SITTING ON [place], ON HER PHONE. NADN/VSS. CALL LIGHT WITHIN REACH. NO NEEDS AT THIS TIME
[2020-07-08] MEDS ORDERED: PANTOPRAZOLE 40 MG IV IVPush ONE (17:00)
[2020-07-08] MEDS ORDERED: PROMETHAZINE 25 MG/ML, 1ML IM PRN (17:00)
[2020-07-08] MEDS ORDERED: OXYcodone IR 5MG TABLET PO PRN (17:00)
[2020-07-08] MEDS ORDERED: SODIUM CHLORIDE FLUSH 10ML SYR IVF PRN (17:00)
[2020-07-08] MEDS ORDERED: TRAZODONE 50MG TABLET PO PRN (17:00)
[2020-07-08] MEDS ORDERED: ONDANSETRON ODT 4 MG PO PRN (17:00)
[2020-07-08] MEDS ORDERED: PANTOPRAZOLE 80 MG in SODIUM CHLORIDE 0.9% 100 ML IV SCH (17:00)
[2020-07-08] MEDS ORDERED: ACETAMINOPHEN 325 MG TABLET PO PRN (17:00)
[2020-07-08] MEDS ORDERED: ENALAPRILAT 1.25 MG/ML, 2ML IVPush PRN (17:00)
[2020-07-08] MEDS ORDERED: DOCUSATE 100 MG CAPSULE PO PRN (17:00)
[2020-07-08] MEDS ORDERED: hydrALAzine 20 MG/ML, 1ML IVPush PRN (17:00)
[2020-07-08] MEDS ORDERED: PANTOPRAZOLE 40 MG IV ONE (17:19)
--- NOTE | 2020-07-08 17:39 | NUR ---
TASK RN: TWO LARGE BORE PIVS PLACED VIA ULTRASOUND
[2020-07-08 17:56] VITALS: BP 124/71
--- NOTE | 2020-07-08 18:05 | NUR ---
PT SITTING CALMLY ON GURNEY, WATCHING TV. AT BS. NADN/VSS. CALL LIGHT WITHIN REACH
--- NOTE | 2020-07-08 18:08 | NUR ---
TASK RN: REPORT GIVEN TO RECEIVING RN. ALL QUESTIONS ANSWERED. PRIMARY RN INITIATING BLOOD TRANSFUSION. PT TO BE TRANSPORTED ONCE PT STABLE.
[2020-07-08 18:11] VITALS: BP 133/83
[2020-07-08 18:20] LABS: MICROSCOPIC NOT IND
[2020-07-08 18:26] VITALS: BP 132/76
[2020-07-08 19:02] VITALS: BP 132/91
[2020-07-08 20:21] VITALS: BP 119/79
[2020-07-08 21:34] VITALS: BP 130/84
[2020-07-08] MEDS: QUETIAPINE 25MG TABLET PO SCH (21:36)
[2020-07-08] MEDS: morphine SULFATE 10 MG/ML, 1ML IVPush PRN (21:37)
[2020-07-08] MEDS: ONDANSETRON 2MG/ML, 2ML IVPush PRN (22:50)
[2020-07-09] MEDS: MELATONIN 5 MG TABLET PO SCH ×2 (00:04→21:51)
[2020-07-09] MEDS: PANTOPRAZOLE 40 MG IV IVPush SCH ×3 (00:04→20:43)
[2020-07-09 00:14] VITALS: BP 128/76
[2020-07-09 04:06] VITALS: BP_SYST 103; BP_SYST 118; BP_DIAS 71; BP_DIAS 81
[2020-07-09] MEDS: morphine SULFATE 10 MG/ML, 1ML IVPush PRN ×2 (04:12→08:37)
[2020-07-09 08:24] VITALS: BP 109/73
[2020-07-09] MEDS: IRON SUCROSE COMPLEX 100MG/5ML IV SCH (08:36)
[2020-07-09] MEDS: MAGNESIUM CITRATE 300ML ORAL SOL PO SCH (08:37)
[2020-07-09] MEDS: ONDANSETRON 2MG/ML, 2ML IVPush PRN ×2 (09:59→17:49)
[2020-07-09] MEDS: GOLYTELY 4,000ML ORAL.SOL PO SCH (10:45)
[2020-07-09 12:23] VITALS: BP 122/77
[2020-07-09] MEDS: MORPHINE SULFATE 4 MG/ML, 1ML IVPush PRN ×2 (12:25→16:36)
[2020-07-09] MEDS ORDERED: GOLYTELY 4,000ML ORAL.SOL PO ONE (16:30)
[2020-07-09 20:38] VITALS: BP 123/83
[2020-07-09] MEDS: QUETIAPINE 25MG TABLET PO SCH (21:52)
[2020-07-10 01:28] VITALS: BP 109/73
[2020-07-10 01:50] VITALS: BP 124/76
[2020-07-10] MEDS: MORPHINE SULFATE 4 MG/ML, 1ML IVPush PRN ×2 (01:52→06:02)
[2020-07-10 05:58] VITALS: BP_SYST 104; BP_SYST 105; BP_DIAS 70; BP_DIAS 72
[2020-07-10] MEDS ORDERED: PROPOFOL 50 ML ONE (07:54)
[2020-07-10] MEDS ORDERED: PROPOFOL 10 MG/ML, 20ML ONE (07:54)
[2020-07-10] MEDS ORDERED: CHLORHEXIDINE 15 ML UDC ONE (07:59)
[2020-07-10] MEDS ORDERED: OXYcodone 5 MG/5 ML ORAL.SOL UDC PO PRN (08:30)
[2020-07-10] MEDS ORDERED: LABETALOL 5MG/ML, 20ML IV PRN (08:30)
[2020-07-10] MEDS ORDERED: EPHEDRINE 50 MG/ML, 1ML IVPush PRN (08:30)
[2020-07-10] MEDS ORDERED: EPHEDRINE 50 MG/ML, 1ML IM PRN (08:30)
[2020-07-10] MEDS ORDERED: PROMETHAZINE 25 MG/ML, 1ML IVPush PRN (08:30)
[2020-07-10] MEDS ORDERED: ONDANSETRON 2MG/ML, 2ML IVPush PRN (08:30)
[2020-07-10] MEDS ORDERED: MEPERIDINE/PF 25MG/0.5ML IVPush PRN (08:30)
[2020-07-10] MEDS ORDERED: DIPHENHYDRAMINE 50 MG/ML, 1ML IVPush PRN (08:30)
[2020-07-10] MEDS ORDERED: HYDROmorphone 1 MG/ML, 1ML INJ IVPush PRN (08:30)
[2020-07-10] MEDS ORDERED: DIAZEPAM 5 MG/ML, 2ML IVPush PRN (08:30)
[2020-07-10] MEDS ORDERED: OMEP20TA62 PO (08:44)
[2020-07-10] MEDS ORDERED: FENTANYL PF 100 MCG/2ML ONE ×2 (08:47→09:20)
[2020-07-10] MEDS: FENTANYL PF 100 MCG/2ML IV PRN ×3 (08:50→09:26)
[2020-07-10] MEDS ORDERED: OXYcodone 5 MG/5 ML ORAL.SOL UDC ONE (09:00)
[2020-07-10] MEDS: GOLYTELY 4,000ML ORAL.SOL PO SCH (09:00)
[2020-07-10] MEDS: MAGNESIUM CITRATE 300ML ORAL SOL PO SCH (10:30)
[2020-07-10] MEDS: PANTOPRAZOLE 40 MG IV IVPush SCH (10:37)
[2020-07-10] MEDS: IRON SUCROSE COMPLEX 100MG/5ML IV SCH (10:37)
== END 2020-07-10 17:30 | disposition home or self-care (01) | DRG 378 ==
LOC: ED 14:15 → EDIP 16:43 → OBSVTOIN 16:43 → INTOOBSV 16:43 → SUATTDRO 16:51 → 4EST 18:50
PROVIDERS: ADMIT Hospitalist; ATTEND Hospitalist
DX: K62.5 Hemorrhage of anus and rectum (principal); D62 Acute posthemorrhagic anemia; D50.9 Iron deficiency anemia, unspecified; D72.819 Decreased white blood cell count, unspecified; G47.00 Insomnia, unspecified; G89.29 Other chronic pain; I49.9 Cardiac arrhythmia, unspecified; K59.09 Other constipation; K64.4 Residual hemorrhoidal skin tags; Z79.01 Long term (current) use of anticoagulants; Z85.028 Personal history of other malignant neoplasm of stomach; Z85.118 Personal history of other malignant neoplasm of bronchus and lung; Z86.711 Personal history of pulmonary embolism; Z86.718 Personal history of other venous thrombosis and embolism; Z87.440 Personal history of urinary (tract) infections; Z90.710 Acquired absence of both cervix and uterus; Z98.84 Bariatric surgery status; Z88.6 Allergy status to analgesic agent; Z91.040 Latex allergy status
CPT/HCPCS: 36415; 71045; 74018; 80053; 81003; 82728; 83540; 83550; 83880; 84484; 85018; 85025; 86850; 86900; 86923; 87635; 88305; 93005; 96361; 96374; 99291; G0378; J1756; J2405; J2704; J3010; C9113; J2270; J7030; P9016

== ENCOUNTER 2020-07-24 09:51 | Emergency (ER) | payer OTHER ==
[~2020-07-24] VITALS: Ht 170.2 cm; Wt 70.2 kg
[~2020-07-24 09:51] MED LIST changes: -HYDR-1067 PO; +HYDR-2214 PO; +OMEP20TA62 PO
[2020-07-24 10:09] VITALS: BP 120/69
[2020-07-24 10:59] LABS: BASOPHILS % (AUTO) 1 % (0-1); EOSINOPHILS % (AUTO) 2 % (1-7); LYMPHOCYTES % (AUTO) 29 % (22-44); MEAN CORPUSCULAR HEMOGLOBIN 25.4 pg (27.0-34.8); MEAN CORPUSCULAR HGB CONC 31.8 g/dL (32.4-35.8); MONOCYTES % (AUTO) 13 % (2-9); NEUTROPHILS % (AUTO) 55 % (42-75); PLATELET COUNT 340 x10^3/uL (130-400); RED BLOOD COUNT 3.93 x10^6/uL (3.82-5.3); RED CELL DISTRIBUTION WIDTH 21.4 % (9.6-15.2)
[2020-07-24 11:15] LABS: ALBUMIN 3.8 g/dL (3.4-5.0); ANION GAP 5 mmol/L (5-15); CALCIUM 8.3 mg/dL (8.5-10.1); CHLORIDE 111 mmol/L (98-107)
[2020-07-24 11:19] LABS: ALANINE AMINOTRANSFERASE 27 U/L (12-78); ALKALINE PHOSPHATASE 85 U/L (45-117); BILIRUBIN,TOTAL 0.4 mg/dL (0.2-1.0); CREATININE 0.75 mg/dL (0.55-1.02)
[2020-07-24 11:21] LABS: MD MORPH REVIEW ONLY
[2020-07-24 11:24] LABS: <PLATELET ESTIMATE> ADEQUATE; <PLT MORPHOLOGY> NORMAL PLT MORPH; ANISOCYTOSIS 1+; HYPOCHROMIA 1+; MICROCYTOSIS 1+; OVALOCYTES 1+
== END 2020-07-24 12:33 | disposition home or self-care (01) ==
LOC: ED 11:13
DX: S41.131A Puncture wound without foreign body of right upper arm, initial encounter (principal); G89.29 Other chronic pain; R10.84 Generalized abdominal pain; K92.2 Gastrointestinal hemorrhage, unspecified; K64.4 Residual hemorrhoidal skin tags; R00.0 Tachycardia, unspecified; D72.819 Decreased white blood cell count, unspecified; Z86.711 Personal history of pulmonary embolism; X58.XXXA Exposure to other specified factors, initial encounter; Y93.89 Activity, other specified; Y92.89 Other specified places as the place of occurrence of the external cause; Y99.8 Other external cause status
CPT/HCPCS: 36415; 80053; 85025; 99284

== ENCOUNTER 2020-07-24 10:48 | Outpatient (CLI) | payer OTHER ==
[2020-07-24 10:02] LABS: FREE T4 (FREE THYROXINE) 0.75 ng/dL (0.76-1.46)
[~2020-07-24 10:48] MED LIST changes: -LACT1CAP37 PO; +LACT1CAP47 PO; -QUET100T PO; +QUET100T2 PO; -QUET50TA PO; +QUET50TA3 PO
== END 2020-07-24 23:59 | disposition home or self-care (01) ==
LOC: LAB 10:48
PROVIDERS: ATTEND Internal Medicine
DX: C79.9 Secondary malignant neoplasm of unspecified site (principal); E34.0 Carcinoid syndrome; K59.00 Constipation, unspecified; R00.0 Tachycardia, unspecified
CPT/HCPCS: 36415; 82384; 84439; 84443

== ENCOUNTER 2020-07-27 06:49 | Day surgery (SDC) | payer OTHER ==
[~2020-07-27] VITALS: Ht 175.3 cm; Wt 69.9 kg
[~2020-07-27 06:49] MED LIST changes: +LACT1CAP37 PO; -LACT1CAP47 PO; +QUET100T PO; -QUET100T2 PO; +QUET50TA PO; -QUET50TA3 PO
[2020-07-27] MEDS ORDERED: LACTATED RINGERS 1,000 ML IV SCH (08:00)
[2020-07-27] MEDS ORDERED: CHLORHEXIDINE 15 ML UDC PO ONE (08:00)
[2020-07-27 08:02] VITALS: BP 115/83
[2020-07-27] MEDS ORDERED: PROPOFOL 10 MG/ML, 20ML ONE ×3 (09:34→09:53)
[2020-07-27] MEDS ORDERED: ACETAMINOPHEN 325 MG TABLET PO PRN (10:00)
[2020-07-27] MEDS ORDERED: ONDANSETRON 2MG/ML, 2ML IVPush PRN (10:00)
[2020-07-27] MEDS ORDERED: FENTANYL PF 100 MCG/2ML ONE (10:26)
[2020-07-27] MEDS: FENTANYL PF 100 MCG/2ML IV PRN ×2 (10:27→10:40)
== END 2020-07-27 12:30 | disposition home or self-care (01) ==
LOC: OUT 06:49
PROVIDERS: ATTEND Internal Medicine Gastroenterology
DX: D64.9 Anemia, unspecified (principal); K64.8 Other hemorrhoids; K62.5 Hemorrhage of anus and rectum; K21.9 Gastro-esophageal reflux disease without esophagitis; F41.9 Anxiety disorder, unspecified; Z20.822 Contact with and (suspected) exposure to COVID-19; Z79.01 Long term (current) use of anticoagulants; Z79.899 Other long term (current) drug therapy; Z86.718 Personal history of other venous thrombosis and embolism; Z86.711 Personal history of pulmonary embolism; Z88.8 Allergy status to other drugs, medicaments and biological substances; Z91.040 Latex allergy status
CPT/HCPCS: 45378; J2704; J3010; J7120; U0003

== ENCOUNTER 2020-07-28 16:21 | Emergency (ER) | payer OTHER ==
[~2020-07-28] VITALS: Ht 175.3 cm; Wt 70.5 kg
--- NOTE | 2020-07-28 16:25 | NUR ---
ASSUMED CARE OF PT. BLESSING [facility] WITH MULTIPLE C/O INCLUDING ABD PAIN AND WANTING SECOND OPINION FOR INTERNAL BLEEDING S/P COLONSCOPY YESTERDAY. NO INTRVENTIONS HORTICULTURE WORKER. MARICRUZ. CARLA. RESTING ON GURDE BEQUE, CALL LIGHT WITHIN REACH, AWAITING EVAL.
--- NOTE | 2020-07-28 16:50 | NUR ---
PT TRANSFERED TO BSC, STEADY GAIT. URINE SAMPLE COLLECTED. PT VSS. CARLA. CALL LIGHT WITHIN REACH.
[2020-07-28] MEDS ORDERED: MORPHINE SULFATE 4 MG/ML, 1ML IVPush PRN (17:30)
[2020-07-28] MEDS ORDERED: SODIUM CHLORIDE FLUSH 10ML SYR IVF ONE (17:30)
[2020-07-28] MEDS ORDERED: ONDANSETRON 2MG/ML, 2ML IVPush ONE (17:30)
[2020-07-28] MEDS ORDERED: SODIUM CHLORIDE 0.9% 1,000ML IVBOLUS ONE (17:30)
--- NOTE | 2020-07-28 17:40 | NUR ---
PIV STARTED, BLOOD DRAWN. UA AND BLOOD SENT TO LAB.
[2020-07-28] MEDS ORDERED: MORPHINE SULFATE 4 MG/ML, 1ML ONE (17:44)
[2020-07-28] MEDS ORDERED: ONDANSETRON 2MG/ML, 2ML ONE (17:44)
[2020-07-28 17:47] LABS: BASOPHILS % (AUTO) 2 % (0-1); EOSINOPHILS % (AUTO) 2 % (1-7); LYMPHOCYTES % (AUTO) 35 % (22-44); MEAN CORPUSCULAR HEMOGLOBIN 25.4 pg (27.0-34.8); MEAN CORPUSCULAR HGB CONC 32.1 g/dL (32.4-35.8); MEAN PLATELET VOLUME 7.9 fL (7.4-10.4); MONOCYTES % (AUTO) 14 % (2-9); NEUTROPHILS % (AUTO) 48 % (42-75); PLATELET COUNT 272 x10^3/uL (130-400); RED BLOOD COUNT 3.67 x10^6/uL (3.82-5.3); RED CELL DISTRIBUTION WIDTH 21.9 % (9.6-15.2)
[2020-07-28 17:58] LABS: ALANINE AMINOTRANSFERASE 33 U/L (12-78); ALBUMIN 3.6 g/dL (3.4-5.0); ANION GAP 7 mmol/L (5-15); CHLORIDE 113 mmol/L (98-107)
[2020-07-28 18:00] LABS: ALKALINE PHOSPHATASE 83 U/L (45-117); BILIRUBIN,TOTAL 0.3 mg/dL (0.2-1.0); TOTAL PROTEIN 6.4 g/dL (6.4-8.2)
[2020-07-28 18:01] LABS: MICROSCOPIC NOT IND
--- NOTE | 2020-07-28 18:16 | NUR ---
PT TO CT
[2020-07-28 18:21] LABS: MD MORPH REVIEW ONLY
[2020-07-28 18:23] LABS: ANISOCYTOSIS 1+; HYPOCHROMIA 1+; MICROCYTOSIS 1+; OVALOCYTES 1+
[2020-07-28 18:24] LABS: <PLATELET ESTIMATE> ADEQUATE; <PLT MORPHOLOGY> NORMAL PLT MORPH
--- NOTE | 2020-07-28 18:31 | NUR ---
PT STILL IN CT.
[2020-07-28] MEDS ORDERED: OMNIPAQUE 350 MG/ML, 100ML BOTTLE ONE (18:39)
--- NOTE | 2020-07-28 18:41 | NUR ---
PT BACK FROM CT, REHOOKED TO VS. VSS. RESP UNLABORED. PT SITTING IN BED RESTING ON HER PHONE, RATING PAIN 9/10.
--- NOTE | 2020-07-28 18:55 | NUR ---
bedside report from khloe colon, pt care transferred at this time. pt resting on estefany, nad, appears comfortable playing on phone, vss, updated on poc, denies additional questions or needs at this time. wctm. waiting for ct results.
--- NOTE | 2020-07-28 18:59 | NUR ---
SBAR REPORT GIVEN TO BRANT, QUESTIONS ANSWERED. PT RESTING IN BED, CALL LIGHT WITHIN REACH. CARLA.
--- NOTE | 2020-07-28 19:15 | NUR ---
WHEN RN TO BEDSIDE PT REQUESTING MORPHINE SECOND DOSE STATING THAT "THE LAST NURSE GRECIA SAID SHE WAS GETTING MY NEXT DOSE OF MEDICATION FOR MY PAIN, THE DOCTOR SAID HE PUT A NOTE IN REGARDING IT". THIS RN VERIFIED WITH OTHER RN AND PROVIDER THAT PT HAD NOT BEEN INFORMED OF SECOND DOSE. PT TO BE DC'D AND PROVIDER STATES TO HOLD SECOND DOSE DUE TO DC.
[2020-07-28 19:48] VITALS: BP 119/74
--- NOTE | 2020-07-28 19:51 | NUR ---
UPON RN AT BS FOR DC PT YELLING AT RN STATING "YOU CANT TAKE MY IV OUT YET, HE HASNT CHECKED ME FOR A GI BLEED YET AND I HAVE ONE, MY HEMATOMA IS DROPPING." RN ASKED PT IF SHE WAS REFERRING TO HEMOGLOBIN AND HEMATOCRIT. RN INFORMED PT THAT WE HAVE THE REPORT FROM COLONOSCOPY YESTERDAY STATING IT WAS AN UNREMARKABLE EXAM. ERP AWARE OF PTS REQUEST, NO NEW TESTS AT THIS TIME. RN BACK TO BS TO REMOVE IV AND PT STATES "THIS IS RIDICULOUS, I NEED TO TALK TO YOUR CHARGE NURSE NOW". RN GOT TRANSPORTATION MUSEUM HELPER TO DISCUSS WITH PT. PT UPSET REGARDING DC. STATES "IM FILING A MALPRACTICE CLAIM AND [facility]AIN." RN INFORMED PT THAT SHE DOES NOT HAVE THE NUMBER HOWEVER CALLING THE SLEEP MANAGER DURING M-F BUSINESS HOURS THEY SHOUDL BE ABLE TO CONNECT HER TO THE RIGHT PERSON. PT UPSET REGARDING THIS INFORMATION. PT PROVIDED DC PAPERS, AMBULATORY WITH SMOOTH AND STEADY GAIT, NAD, VSS, NO PERSONAL BELONGINGS LEFT IN ROOM AFTER DC.
== END 2020-07-28 19:58 | disposition home or self-care (01) ==
LOC: ED 18:47
DX: D53.9 Nutritional anemia, unspecified (principal); D72.819 Decreased white blood cell count, unspecified; G89.29 Other chronic pain; R10.84 Generalized abdominal pain; Z90.89 Acquired absence of other organs; Z90.49 Acquired absence of other specified parts of digestive tract; Z86.718 Personal history of other venous thrombosis and embolism
CPT/HCPCS: 36415; 74177; 80053; 81003; 83690; 85025; 96361; 96374; 96375; 99285; J2270; J2405; J7030; Q9967

== ENCOUNTER 2020-08-06 12:56 | Emergency (ER) | payer OTHER, MEDICARE ==
[~2020-08-06] VITALS: Ht 175.3 cm; Wt 72.3 kg
--- NOTE | 2020-08-06 13:06 | NUR ---
PT BROUGHT BACK TO ROOM VIA WC.
[2020-08-06] MEDS ORDERED: ONDANSETRON 2MG/ML, 2ML ONE (13:26)
[2020-08-06] MEDS ORDERED: MORPHINE SULFATE 4 MG/ML, 1ML ONE ×2 (13:26→14:48)
[2020-08-06] MEDS ORDERED: ONDANSETRON 2MG/ML, 2ML IVPush ONE (13:30)
[2020-08-06] MEDS ORDERED: SODIUM CHLORIDE 0.9% 1,000ML IVBOLUS ONE (13:30)
[2020-08-06] MEDS: MORPHINE SULFATE 4 MG/ML, 1ML IVPush PRN ×2 (13:34→14:49)
[2020-08-06 13:51] LABS: BASOPHILS % (AUTO) 2 % (0-1); EOSINOPHILS % (AUTO) 2 % (1-7); LYMPHOCYTES % (AUTO) 29 % (22-44); MEAN CORPUSCULAR HEMOGLOBIN 25.2 pg (27.0-34.8); MEAN CORPUSCULAR HGB CONC 31.4 g/dL (32.4-35.8); MEAN PLATELET VOLUME 8.1 fL (7.4-10.4); MONOCYTES % (AUTO) 12 % (2-9); NEUTROPHILS % (AUTO) 55 % (42-75); PLATELET COUNT 288 x10^3/uL (130-400); RED BLOOD COUNT 4.17 x10^6/uL (3.82-5.3); RED CELL DISTRIBUTION WIDTH 22.9 % (9.6-15.2)
[2020-08-06 14:04] LABS: ALBUMIN 4.2 g/dL (3.4-5.0); ANION GAP 3 mmol/L (5-15); CALCIUM 8.6 mg/dL (8.5-10.1); CHLORIDE 109 mmol/L (98-107)
[2020-08-06 14:07] LABS: ALANINE AMINOTRANSFERASE 44 U/L (12-78); ALKALINE PHOSPHATASE 99 U/L (45-117); BILIRUBIN,TOTAL 0.3 mg/dL (0.2-1.0); CREATININE 0.78 mg/dL (0.55-1.02); TOTAL PROTEIN 7.8 g/dL (6.4-8.2)
[2020-08-06 14:19] LABS: MD SCAN
[2020-08-06] MEDS ORDERED: SODIUM CHLORIDE FLUSH 10ML SYR IVF ONE (14:30)
[2020-08-06 14:52] VITALS: BP 112/74
[2020-08-06 15:05] LABS: MICROSCOPIC AUTO
== END 2020-08-06 15:45 | disposition home or self-care (01) ==
LOC: ED 13:27
DX: R10.84 Generalized abdominal pain (principal); D53.9 Nutritional anemia, unspecified; R42 Dizziness and giddiness; Z85.118 Personal history of other malignant neoplasm of bronchus and lung
CPT/HCPCS: 36415; 80053; 81001; 83690; 85025; 87086; 96361; 96374; 96375; 96376; 99284; J2270; J2405; J7030

== ENCOUNTER 2020-08-23 17:35 | Emergency (ER) | payer OTHER, MEDICARE ==
[~2020-08-23] VITALS: Ht 175.3 cm; Wt 74.3 kg
[~2020-08-23 17:35] MED LIST changes: -LACT1CAP37 PO; +LACT1CAP47 PO
[2020-08-23] MEDS ORDERED: MORPHINE SULFATE 4 MG/ML, 1ML IVPush ONE (20:00)
[2020-08-23] MEDS ORDERED: SODIUM CHLORIDE 0.9% 1,000ML IVBOLUS ONE (20:00)
[2020-08-23] MEDS ORDERED: ONDANSETRON 2MG/ML, 2ML IVPush ONE (20:00)
[2020-08-23] MEDS ORDERED: SODIUM CHLORIDE FLUSH 10ML SYR IVF ONE (20:00)
[2020-08-23] MEDS ORDERED: ONDANSETRON 2MG/ML, 2ML ONE (20:03)
[2020-08-23] MEDS ORDERED: MORPHINE SULFATE 4 MG/ML, 1ML ONE (20:03)
[2020-08-23 20:25] LABS: BASOPHILS % (AUTO) 1 % (0-1); EOSINOPHILS % (AUTO) 1 % (1-7); LYMPHOCYTES % (AUTO) 27 % (22-44); MD NO; MEAN CORPUSCULAR HEMOGLOBIN 25.7 pg (27.0-34.8); MEAN CORPUSCULAR HGB CONC 32.4 g/dL (32.4-35.8); MEAN PLATELET VOLUME 8.3 fL (7.4-10.4); MONOCYTES % (AUTO) 12 % (2-9); NEUTROPHILS % (AUTO) 59 % (42-75); PLATELET COUNT 245 x10^3/uL (130-400); RED BLOOD COUNT 3.96 x10^6/uL (3.82-5.3); RED CELL DISTRIBUTION WIDTH 21.3 % (9.6-15.2)
[2020-08-23 20:33] LABS: ALANINE AMINOTRANSFERASE 44 U/L (12-78); ALBUMIN 3.8 g/dL (3.4-5.0); ANION GAP 5 mmol/L (5-15); CALCIUM 8.2 mg/dL (8.5-10.1); CHLORIDE 112 mmol/L (98-107); CREATININE 0.74 mg/dL (0.55-1.02)
[2020-08-23 20:36] LABS: ALKALINE PHOSPHATASE 103 U/L (45-117); BILIRUBIN,TOTAL 0.3 mg/dL (0.2-1.0); TOTAL PROTEIN 7.1 g/dL (6.4-8.2)
[2020-08-23] MEDS ORDERED: PROCHLORPERAZINE 5 MG/ML, 2ML ONE (21:25)
[2020-08-23] MEDS ORDERED: PROCHLORPERAZINE 5 MG/ML, 2ML IVPush ONE (21:30)
[2020-08-23 22:56] VITALS: BP 132/74
== END 2020-08-23 22:58 | disposition home or self-care (01) ==
LOC: ED 21:17
DX: G89.29 Other chronic pain (principal); R10.84 Generalized abdominal pain; R11.2 Nausea with vomiting, unspecified; Z90.49 Acquired absence of other specified parts of digestive tract; Z86.718 Personal history of other venous thrombosis and embolism; Z85.118 Personal history of other malignant neoplasm of bronchus and lung
CPT/HCPCS: 36415; 74176; 80053; 83690; 85025; 96361; 96374; 96375; 99284; J0780; J2270; J2405; J7030

== ENCOUNTER 2020-09-21 08:48 | Day surgery (SDC) | payer OTHER, MEDICARE ==
[~2020-09-21] VITALS: Ht 175.3 cm; Wt 71.8 kg
[2020-09-21 09:53] VITALS: BP 118/81
[2020-09-21] MEDS ORDERED: CHLORHEXIDINE 15 ML UDC ONE (10:07)
[2020-09-21] MEDS ORDERED: ONDA4TAB7 PO (10:11)
[2020-09-21] MEDS ORDERED: OXYC10TA6 PO (10:11)
[2020-09-21] MEDS ORDERED: LACTATED RINGERS 1,000 ML IV SCH (10:30)
[2020-09-21] MEDS ORDERED: CEFAZOLIN 1,000 MG ONE (11:24)
[2020-09-21] MEDS ORDERED: PROPOFOL 10 MG/ML, 50ML ONE (11:24)
[2020-09-21] MEDS ORDERED: ETHYL ALCOHOL 98%, 5 ML ONE (11:30)
[2020-09-21] MEDS ORDERED: TRIAMCINOLONE ACETONIDE 40 MG/ML, 1ML ONE (11:30)
[2020-09-21] MEDS ORDERED: BUPIVACAINE/PF 0.25% ONE (11:30)
[2020-09-21] MEDS: OXYcodone 5 MG/5 ML ORAL.SOL UDC PO PRN ×2 (11:59→13:24)
[2020-09-21] MEDS ORDERED: HYDROmorphone 2 MG/ML, 1ML IVPush PRN ×2 (12:00→12:30)
[2020-09-21] MEDS ORDERED: hydrALAzine 20 MG/ML, 1ML IV PRN ×2 (12:00→12:30)
[2020-09-21] MEDS ORDERED: FENTANYL PF 100 MCG/2ML IV PRN ×2 (12:00→12:30)
[2020-09-21] MEDS ORDERED: LABETALOL 5MG/ML, 20ML IV PRN ×2 (12:00→12:30)
[2020-09-21] MEDS ORDERED: ALBUTEROL SULFATE 2.5 MG/3 ML NPPB PRN ×2 (12:00→12:30)
[2020-09-21] MEDS ORDERED: DIAZEPAM 5 MG/ML, 2ML IVPush PRN ×2 (12:00→12:30)
[2020-09-21] MEDS ORDERED: ACETAMINOPHEN 325 MG TABLET PO PRN ×2 (12:00→12:30)
[2020-09-21] MEDS ORDERED: MEPERIDINE/PF 25MG/0.5ML IVPush PRN ×2 (12:00→12:30)
[2020-09-21] MEDS ORDERED: PROMETHAZINE 25 MG/ML, 1ML IV PRN ×2 (12:00→12:30)
[2020-09-21] MEDS ORDERED: KETOROLAC 30 MG/1 ML IV PRN ×2 (12:00→12:30)
[2020-09-21] MEDS ORDERED: ACETAMINOPHEN 650 MG/20.3 ML UDC ONE (12:05)
[2020-09-21] MEDS ORDERED: OXYcodone 5 MG/5 ML ORAL.SOL UDC ONE (12:06)
[2020-09-21] MEDS ORDERED: MEPERIDINE/PF 25MG/ML,1ML ONE (12:12)
[2020-09-21] MEDS ORDERED: OXYcodone 5 MG/5 ML ORAL.SOL UDC PO PRN (12:30)
== END 2020-09-21 14:15 | disposition home or self-care (01) ==
LOC: OUT 08:48
PROVIDERS: ATTEND Internal Medicine Gastroenterology
DX: R10.10 Upper abdominal pain, unspecified (principal); K29.40 Chronic atrophic gastritis without bleeding; F41.9 Anxiety disorder, unspecified; J45.909 Unspecified asthma, uncomplicated; F31.9 Bipolar disorder, unspecified; Z88.1 Allergy status to other antibiotic agents; Z88.8 Allergy status to other drugs, medicaments and biological substances; Z20.822 Contact with and (suspected) exposure to COVID-19; Z98.890 Other specified postprocedural states; Z98.84 Bariatric surgery status; Z85.118 Personal history of other malignant neoplasm of bronchus and lung; Z90.49 Acquired absence of other specified parts of digestive tract; Z79.01 Long term (current) use of anticoagulants
CPT/HCPCS: 43253; 87635; J0690; J2175; J2704; J3301

== ENCOUNTER 2020-09-24 11:40 | Emergency (ER) | payer OTHER, MEDICARE ==
[~2020-09-24] VITALS: Ht 172.7 cm; Wt 70.0 kg
--- NOTE | 2020-09-24 11:42 | NUR ---
PT BIBA FROM HOME FOR C/O R-SIDED ABD PAIN THAT RADIATES TO BACK. PT STATES ITS SHARP WITH N/V/D SINCE MONDAY. PT HAD ENDOSCOPY & NERVE BLOCK ON MONDAY. PT STATES SHE HAS HIGH LIVER ENZYMES. VSS. PT CHANGED INTO GOWN, MONITORS IN PLACE. CALL LIGHT WITHIN REACH.
--- NOTE | 2020-09-24 11:56 | NUR ---
ERP AT BS
[2020-09-24] MEDS ORDERED: OXYcodone/APAP 5/325MG TABLET ONE (12:13)
--- NOTE | 2020-09-24 12:16 | NUR ---
pt medicATED PER EMAR
[2020-09-24 12:20] VITALS: BP 140/80
[2020-09-24 12:20] LABS: BASOPHILS % (AUTO) 1 % (0-1); EOSINOPHILS % (AUTO) 0 % (1-7); LYMPHOCYTES % (AUTO) 24 % (22-44); MEAN CORPUSCULAR HEMOGLOBIN 25.7 pg (27.0-34.8); MEAN CORPUSCULAR HGB CONC 32.2 g/dL (32.4-35.8); MEAN PLATELET VOLUME 8.5 fL (7.4-10.4); MONOCYTES % (AUTO) 13 % (2-9); NEUTROPHILS % (AUTO) 62 % (42-75); PLATELET COUNT 235 x10^3/uL (130-400); RED BLOOD COUNT 3.75 x10^6/uL (3.82-5.3); RED CELL DISTRIBUTION WIDTH 21.3 % (9.6-15.2)
--- NOTE | 2020-09-24 12:20 | NUR ---
TASK RN: PT RESTING ON GURNEY. NADN. [place].
[2020-09-24] MEDS ORDERED: OXYcodone/APAP 5/325MG TABLET PO ONE (12:30)
[2020-09-24 12:31] LABS: ALANINE AMINOTRANSFERASE 52 U/L (12-78); ALBUMIN 3.8 g/dL (3.4-5.0); ANION GAP 7 mmol/L (5-15); CALCIUM 8.4 mg/dL (8.5-10.1); CHLORIDE 107 mmol/L (98-107); CREATININE 0.76 mg/dL (0.55-1.02)
[2020-09-24 12:33] LABS: ALKALINE PHOSPHATASE 113 U/L (45-117); BILIRUBIN,TOTAL 0.4 mg/dL (0.2-1.0); TOTAL PROTEIN 7.1 g/dL (6.4-8.2)
--- NOTE | 2020-09-24 13:26 | NUR ---
Patient given discharge instructions and they have confirmed that they understand the instructions. Patient ambulatory with steady gait.
== END 2020-09-24 13:27 | disposition home or self-care (01) ==
LOC: ED 12:13
DX: R10.84 Generalized abdominal pain (principal); R11.2 Nausea with vomiting, unspecified; R19.7 Diarrhea, unspecified; I10 Essential (primary) hypertension; Z86.718 Personal history of other venous thrombosis and embolism; Z90.49 Acquired absence of other specified parts of digestive tract; Z90.89 Acquired absence of other organs
CPT/HCPCS: 36415; 71045; 80053; 83690; 85025; 99284

== ENCOUNTER → 2020-11-17 | Outpatient (CLI) | payer OTHER, MEDICARE ==
[2020-11-17 11:58] LABS: FOLATE LEVEL 6.4 ng/mL (3.1-17.5)
== END | disposition home or self-care (01) ==
LOC: LAB 10:45
PROVIDERS: ATTEND Pathology Hematology
DX: C7A.090 Malignant carcinoid tumor of the bronchus and lung (principal); Z79.899 Other long term (current) drug therapy
CPT/HCPCS: 36415; 82607; 82728; 82746; 83540; 83550; 84260; 84586; 86316

== ENCOUNTER 2020-12-01 15:12 | Emergency (ER) | payer OTHER, MEDICARE ==
[~2020-12-01] VITALS: Ht 175.3 cm; Wt 69.0 kg
[~2020-12-01 15:12] MED LIST changes: -QUET100T PO; +QUET100T2 PO; -QUET50TA PO; +QUET50TA3 PO
[2020-12-01 15:58] LABS: MEAN CORPUSCULAR HEMOGLOBIN 23.8 pg (27.0-34.8); MEAN CORPUSCULAR HGB CONC 31.5 g/dL (32.4-35.8); MEAN PLATELET VOLUME 8.3 fL (7.4-10.4); PLATELET COUNT 251 x10^3/uL (130-400); RED BLOOD COUNT 3.73 x10^6/uL (3.82-5.3)
--- NOTE | 2020-12-01 16:12 | NUR ---
us and labs pending. cxr clear. nad. as
[2020-12-01 16:13] LABS: ALBUMIN 3.7 g/dL (3.4-5.0); ANION GAP 7 mmol/L (5-15); CALCIUM 8.1 mg/dL (8.5-10.1); CHLORIDE 110 mmol/L (98-107)
[2020-12-01 16:17] LABS: ALANINE AMINOTRANSFERASE 45 U/L (12-78); ALKALINE PHOSPHATASE 90 U/L (45-117); BILIRUBIN,TOTAL 0.5 mg/dL (0.2-1.0); CREATININE 0.66 mg/dL (0.55-1.02); TOTAL PROTEIN 7.2 g/dL (6.4-8.2)
--- NOTE | 2020-12-01 16:42 | NUR ---
pt tbdc after sahm sees her. as
[2020-12-01 17:04] VITALS: BP 127/82
[2020-12-01 17:17] LABS: ANISOCYTOSIS 2+; EOS#(MANUAL) 0.03 x10^3/uL (0.0-0.4); EOS% (MANUAL) 1 % (1-7); LYMPH#(MANUAL) 0.49 x10^3/uL (1-3.4); LYMPHS% (MANUAL) 19 % (22-44); MICROCYTOSIS 1+; MONOS#(MANUAL) 0.34 x10^3/uL (0.3-2.7); MONOS% (MANUAL) 13 % (2-9); SEG#(MANUAL) 1.74 x10^3/uL (1.8-6.8); SEGS% (MANUAL) 67 % (42-75)
[2020-12-01 17:18] LABS: HYPOCHROMIA 2+; OVALOCYTES 2+
[2020-12-01 17:19] LABS: <PLATELET ESTIMATE> ADEQUATE; <PLT MORPHOLOGY> NORMAL PLT MORPH
== END 2020-12-01 17:06 | disposition home or self-care (01) ==
LOC: ED 15:22
DX: M79.604 Pain in right leg (principal); R07.89 Other chest pain; D61.818 Other pancytopenia; G89.4 Chronic pain syndrome; R06.02 Shortness of breath; I10 Essential (primary) hypertension; Z86.718 Personal history of other venous thrombosis and embolism; Z85.028 Personal history of other malignant neoplasm of stomach; Z90.49 Acquired absence of other specified parts of digestive tract; Z88.5 Allergy status to narcotic agent; Z88.8 Allergy status to other drugs, medicaments and biological substances; Z88.6 Allergy status to analgesic agent; Z88.1 Allergy status to other antibiotic agents; Z88.4 Allergy status to anesthetic agent; Z91.040 Latex allergy status
CPT/HCPCS: 36415; 71046; 80053; 85025; 93005; 99285

== ENCOUNTER 2020-12-22 16:17 | Emergency (ER) | payer OTHER, MEDICARE ==
[~2020-12-22] VITALS: Ht 175.3 cm; Wt 68.0 kg
[2020-12-22 16:20] VITALS: BP 112/65
--- NOTE | 2020-12-22 16:29 | NUR ---
THIS RN AT BEDSIDE DURING RECTAL EXAM WITH DOREEN WEBER. BERTA NEG.
--- NOTE | 2020-12-22 16:30 | NUR ---
PT YELLING AT ERMD AFTER BEING REMINDED THIS IS CHRONIC PAIN AND UNLIKELY TO FIND REASON FOR PAIN. PT JUMPED OUT OF BED TO SIT IN CHAIR. PT STATES "I DON'T KNOW IF I WANT LABS". PT ON HER CELL PHONE TEXTING.
--- NOTE | 2020-12-22 17:10 | NUR ---
pt yelling at charge desk, ambulating with steady gait and states "i am in 10/10 pain and demanding pain medicine right now" patient sees candy at charge station and says "can I have a piece of candy?" This RN states "if you are in 10/10 pain, candy is probably not the best thing for you" Patient states "i dont really care right now". Patient states "i guess the charge nurse thing isnt really working out and you're not going to help me" patient seen walking out of ER front door.
== END 2020-12-22 17:26 | disposition left against medical advice (07) ==
LOC: ED 16:22
DX: R10.32 Left lower quadrant pain (principal); R10.10 Upper abdominal pain, unspecified; R11.2 Nausea with vomiting, unspecified; R19.7 Diarrhea, unspecified; I10 Essential (primary) hypertension; G89.29 Other chronic pain; Z86.718 Personal history of other venous thrombosis and embolism; Z86.39 Personal history of other endocrine, nutritional and metabolic disease; Z90.49 Acquired absence of other specified parts of digestive tract
CPT/HCPCS: 99283